=== PATIENT | female | born 1970 | race Caucasian/White ===

== ENCOUNTER → 2017-05-30 13:35 | Outpatient (CLI) | payer OTHER, SELFPAY ==
[2017-06-04 16:55] LABS: HPV Reflexed? NOT INDICATED
== END ==
PROVIDERS: Visit Provider Obstetrics & Gynecology
DX: Z12.4 Encounter for screening for malignant neoplasm of cervix (principal); Z01.419 Encounter for gynecological examination (general) (routine) without abnormal findings
CPT/HCPCS: 88175; G0145

== ENCOUNTER → 2018-10-22 09:25 | Outpatient (CLI) | payer OTHER, SELFPAY ==
--- NOTE | 2018-10-22 09:29 | RAD_ITS ---
STUDY: X-RAY - RIGHT KNEE REASON FOR EXAM: Female, 48 years old. Right knee pain. TECHNIQUE: 4 view(s) of the knee. COMPARISON: None. FINDINGS: Normal visualized distal femur. Normal visualized proximal tibia and fibula. Normal proximal tibiofibular articulation. There is no demonstrated fracture. Normal medial femorotibial compartment. Normal lateral femorotibial compartment. Normal patellofemoral articulation. There is no demonstrated joint effusion. The soft tissue structures are unremarkable. RAD/Knee 4 or More Views IMPRESSION: Normal x-ray examination of the knee. Electronically Signed: Antonio Gould MD at 17:01 EDT , Service support ,
--- NOTE | 2018-10-22 09:29 | RAD_ITS ---
STUDY: X-RAY CHEST REASON FOR EXAM: Female, 48 years old. Atypical chest pain TECHNIQUE: Frontal and lateral views of the chest. COMPARISON: None. FINDINGS: The lungs are clear and expanded. There is no demonstrated pleural abnormality. Normal size heart. Normal mediastinum and cesario. Normal visualized pulmonary arteries. Normal visualized aortic arch and descending thoracic aorta. Normal visualized thoracic spine. Normal visualized ribs, clavicles, and shoulders. There is no demonstrated abnormality of the visualized soft tissue structures of the upper abdomen. RAD/Chest PA and Lateral IMPRESSION: Normal x-ray examination of the chest. Electronically Signed: Antonio Gould MD at 16:59 EDT , Service support ,
[2018-10-22 12:13] LABS: Absolute Lymphocyte Count 2.04 X10^3/uL (0.83-4.51); Basophil# 0.05 X10^3/uL; Basophil% 0.9 % (0-1); Eosinophil# 0.14 X10^3/uL; Eosinophils% 2.5 % (0-5); Hematocrit 41.8 % (37-47); Hemoglobin 13.3 g/dL (12.0-15.0); Lymphocyte # 2.04 X10^3/ul (4.0); Lymphocyte % 36.8 % (19-41); Mean Corp Hgb Conc 31.8 g/dL (32-36); Mean Corpuscular Hgb 28.9 pg (27.0-32.0); Mean Corpuscular Volume 90.7 fL (81-99); Mean Platelet Vol. 9.3 fl (6.2-12.0); Monocyte# 0.33 X10^3/uL; Monocyte% 5.9 % (0-10); NRBC Flagged by Analyzer 0 % (0-5); Neutrophil # 2.98 X10^3/uL (2.7-7.7); Neutrophil % 53.7 % (47-70); Platelet Count 261 K/mm3 (150-450); RBC Distribution Width CV 13.7 % (11.6-14.6); RBC Distribution Width SD 45.8 fl (35.1-43.9); Red Blood Count 4.61 M/mm3 (4.2-5.4); White Blood Count 5.6 K/mm3 (4.4-11.0)
[2018-10-22 12:49] LABS: Hemoglobin A1c 6.1 % (4.2-6.3)
[2018-10-22 12:56] LABS: ALB/GLOB Ratio 0.9 RATIO (0.9-2.4); AST(SGOT) 17 U/L (15-37); Alanine Aminotransfer ALT/SGPT 26 U/L (13-56); Albumin, Serum 3.6 g/dL (3.2-5.0); Alkaline Phosphatase 79 U/L (45-117); Anion Gap 7 (5-15); BUN 12 mg/dL (7-18); BUN/Creat Ratio 14.4 RATIO (10-20); Calcium,Total 8.5 mg/dL (8.5-10.1); Chloride 107 mmol/L (98-107); Cholesterol 223 mg/dL (200); Creatinine, Serum 0.84 mg/dL (0.55-1.02); EST Glomerular Filtration Rate 77 mL/min (>60); Est Glom Filt Rate - Afr Amer 93 mL/min (>60); Globulin 3.8 g/dL (2.2-4.2); Glucose 102 mg/dL (74-106); High Density Lipoprotein 43 mg/dL; Potassium 4.2 mmol/L (3.5-5.1); Protein, Total 7.4 g/dL (6.4-8.2); Sodium Level 139 mmol/L (136-145); Triglycerides 268 mg/dL; Very Low Density Lipoprotein 54 mg/dL (5-40)
== END ==
PROVIDERS: Family Provider Family Medicine; PCP Family Medicine; Referring Provider Family Medicine; Visit Provider Family Medicine
DX: R07.89 Other chest pain (principal); M25.561 Pain in right knee
CPT/HCPCS: 36415; 71046; 73564; 80053; 80061; 83036; 84443; 85025

== ENCOUNTER → 2018-11-06 06:55 | Outpatient (CLI) | payer OTHER, SELFPAY ==
--- NOTE | 2018-11-06 10:59 | STRESSREP ---
Stress Test Report Date: 11-06-18 Procedure: Pharmacologic stress nuclear imaging study Indications: Chest pain Consent: Per the patient Procedure: The patient underwent pharmacologic (Regadenoson) evaluation with a peak heart rate of 88 beats per minute (51 %predicted maximal heart rate) and a peak blood pressure of 146/70 mmHg. The baseline ECG demonstrated sinus bradycardia. The peak pharmacologic ECG demonstrated no obvious ECG changes. There were no cardiac dysrhythmias pretest, during pharmacologic infusion, or recovery. There was no complaint of chest discomfort during pharmacologic infusion or recovery. The examination was discontinued secondary to completion of protocol. Impression: 1. Pharmacologic (Regadenoson) evaluation 2. Peak pharmacologic ECG with no obvious ECG changes. 3. There were no cardiac dysrhythmias pretest, during pharmacologic infusion, or recovery. 4. Nuclear images pending Myocardial perfusion imaging study: Technique: The patient was injected with 15.0 millicuries of technetium 99m Cardiolite and subsequently rest SPECT Cardiolite nuclear imaging was obtained in the horizontal long, vertical long, and short axis views. The patient underwent pharmacologic (Regadenoson) evaluation with a peak heart rate of 88 beats per minute (51 % percent predicted maximal heart rate) and a peak blood pressure of 146/70 mmHg. The patient was injected with 45.0 millicuries of technetium 99m Cardiolite and subsequently stress SPECT Cardiolite nuclear imaging was obtained in the horizontal long, vertical long, and short axis views. A gated Cardiolite study at peak stress was obtained. Interpretation: Rest and stress SPECT Cardiolite nuclear imaging status post realignment, normalization, and attenuation correction demonstrate relative uniform tracer uptake and myocardial perfusion appearing within normal limits. There is end systolic thickening and brightening. The gated Cardiolite study demonstrates myocardial thickening and inward wall motion. The reported LVEF is 76 %. Impression: 1. Rest and stress SPECT Cardiolite nuclear imaging demonstrate relative uniform tracer uptake and myocardial perfusion appearing within normal limits. 2. The gated Cardiolite study reports an LVEF of 76 %. This note was generated with Legal Eggation software. It may contain incorrect words, spelling, and punctuation that were not noted in checking the note before signing.
== END ==
PROVIDERS: Family Provider Family Medicine; PCP Family Medicine; Referring Provider Family Medicine; Visit Provider Family Medicine
DX: R07.89 Other chest pain (principal)
CPT/HCPCS: 78452; 93017; A9500; A4216; J2785

== ENCOUNTER 2018-11-28 10:00 | Outpatient (RCR) | payer OTHER, SELFPAY ==
--- NOTE | 2018-11-05 11:57 | HP.PTEVAL_ITS ---
Patient's Visit Information TEO VILLAFANA is a 48 year old F referred to Physical Therapy by Shai Zhou MD with a diagnosis of Possible medial meniscal test R knee. Date of Evaluation: 11/05/18 Physical Therapist: Shay Fang PT, ATC - Visit Plan Frequency: 2-3x /Week Duration: 3 Weeks Plan: R LE stretching and strengthening, balance and proprio, core stab, nustep, and HEP - Subjective Findings: Pt. injured knee by stepping up into van and felt knee buckle and pop. Pt reported this occured around 09/14, 09/15. Pt reports pain at rest as 0/10. Pt reports pain at worst as 6/10. Pt. reports squatting, sitting for loing periods of time will cause pain. Pt states walking for long periods of time will cause. Pt. states she is on her feet most of the time at work. Pt. reports that rolling over, laying on stomach will cuase pain during sleep and wake her up. Pt. states coming down stairs will cause pain. Pt reports she walks down stairs one step at a time. R knee pops and givers out on her - Pain R knee pain Pain Intensity (Out of 10): 2 Pain Intensity Range: 6 - Objective Neuro: B LE sensation is WNL to light touch. MMT: R hip flex and knee flex= 4/5. All other B LE MMT 5/5 throughout. ROM: R knee 0-2-110, L knee 0-135 degrees. Palpation: Pt is point tender to the medial aspect of her R knee. No obvious deformity. SPecial tests: pos Mcmurrays test - Goals Goal 1:: Decrease R knee pain x 50% to aid with sleep Goal Time Frame: 2-4 Weeks Goal 2:: Increase R LE strength x 1 grade to aid with stair negotiation Goal Time Frame: 2-4 Weeks Goal 3:: Increase R knee ROM x 20 degrees to aid with squatting activity Goal Time Frame: 2-4 Weeks Goal 4:: I with HEP Goal Time Frame: 2-4 Weeks - Rehabilitation Potential Physical Therapy Diagnosis: R knee pain, weakness, and limited ROM secondary to possible R knee medial meniscal tear Rehabilitation Potential: Good - Anticipated Interventions Patient/Client Instruction: Educate patient on: Condition, Plan of Care For the Purpose of:: To improve self management Therapeutic Exercise to Include: Strength training, Endurance training, Balance training, Body mechanics, Postural training, Flexibilty training, Dynamic Lumbar Stabilization For the Purpose of:: To decrease pain, To increase ROM, To improve muscle performance and motor function Cryotherapy (ice pack, ice massage): Yes For the Purpose of:: To decrease pain Thank you for the opportunity to evaluate your patient. For Medicare and Medicare HMO plans, please review the plan of care and approve it. It will need to be FAXED BACK to us at [phone] for Medicare purposes. For Medicare only, by signing this I certify the plan of care. Please let me know if there are questions or concerns regarding this plan of care. Physician Signature: Date:
--- NOTE | 2018-11-28 10:32 | HP.PTDCSUM ---
HP - PT D/C Summary It has been my pleasure to treat TEO VILLAFANA under orders from Shai Zhou MD, for the diagnosis of Possible medial meniscal tear R knee for a total of 6 visit(s). Discharge Date: Please see the following information for a summary of their discharge status. - Subjective Subjective: I feel a lot better. I am ready for discharge - Pain R knee pain Pain Intensity (Out of 10): 1 - Overall Improvement % Improvement: 90 - Objective Objective/Function: R knee pain ranges from 0-1/10. R knee MMT 5/5 throughout. R knee ROM 0-110 degrees. Pt is I with HEP. Rx goals achieved - Goals Goal 1:: Decrease R knee pain x 50% to aid with sleep Goal Progress: Goal Met Goal 2:: Increase R LE strength x 1 grade to aid with stair negotiation Goal Progress: Goal Met Goal 3:: Increase R knee ROM x 20 degrees to aid with squatting activity Goal Progress: Progressing Goal 4:: I with HEP Goal Progress: Goal Met - Plan Plan: Discharge - D/C Information If there are questions or concerns regarding this patient's physical therapy, please feel free to call me at [phone]. Thank you for the referral of this patient. Sincerely, Shay Fang, PT, ATC
== END 2018-11-28 10:37 | disposition home or self-care (01) ==
LOC: PT 10:00
PROVIDERS: Family Provider Family Medicine; PCP Family Medicine; Referring Provider Family Medicine; Visit Provider Family Medicine
DX: M25.561 Pain in right knee (principal)
CPT/HCPCS: 97110; 97161; 97530

== ENCOUNTER → 2020-04-29 15:36 | Outpatient (CLI) | payer OTHER, SELFPAY ==
--- NOTE | 2020-04-29 16:21 | CT_ITS ---
INDICATION: ABD PAIN EXAMINATION: CT Abdomen And Pelvis W/ Contrast Injection TECHNIQUE: Helically acquired images were obtained of the abdomen and pelvis after IV contrast. A radiation dose optimization technique was used for this scan. IV Contrast dosage and agent: 100 cc ISOVUE-370 Oral contrast: GASTROGRAFIN. COMPARISON: None. FINDINGS: Visualized lung bases: Unremarkable Liver: Unremarkable Gallbladder: Unremarkable Spleen: Unremarkable Pancreas: Unremarkable Adrenal Glands: Unremarkable Kidneys: Unremarkable GI Tract: Scattered diverticula throughout the colon without evidence of inflammation. The appendix is normal. Vasculature: Mild scattered aortoiliac atherosclerotic calcifications. Lymphadenopathy: None Peritoneum: No ascites. Bladder: Unremarkable Reproductive organs: Unremarkable Bones/Soft tissues: Mild scattered degenerative changes of the visualized spine. CT/Abdomen/Pelvis WITH Contrast IMPRESSION: No acute abnormalities in the abdomen or pelvis. Diverticulosis without evidence of acute diverticulitis. Electronically Signed: Davonte Mccarty MD at 19:07 EDT Tel , Service support ,
[2020-04-29 17:29] LABS: Hematocrit 39.5 % (37-47); Hemoglobin 12.9 g/dL (12.0-15.0); Mean Corp Hgb Conc 32.7 g/dL (32-36); Mean Corpuscular Hgb 29.2 pg (27.0-32.0); Mean Corpuscular Volume 89.4 fL (81-99); Mean Platelet Vol. 9.2 fl (6.2-12.0); Platelet Count 265 K/mm3 (150-450); RBC Distribution Width CV 13.7 % (11.6-14.6); RBC Distribution Width SD 44.4 fl (35.1-43.9); Red Blood Count 4.42 M/mm3 (4.2-5.4); White Blood Count 6.8 K/mm3 (4.4-11.0)
[2020-04-29 18:16] LABS: AST(SGOT) 17 U/L (15-37); Alanine Aminotransfer ALT/SGPT 26 U/L (13-56); Albumin, Serum 3.8 g/dL (3.2-5.0); Alkaline Phosphatase 74 U/L (45-117); Amylase 28 U/L (25-115); Anion Gap 7 (5-15); BUN 19 mg/dL (7-18); Calcium,Total 9.1 mg/dL (8.5-10.1); Chloride 105 mmol/L (98-107); Creatinine, Serum 0.76 mg/dL (0.55-1.02); EST Glomerular Filtration Rate 85 mL/min (>60); Est Glom Filt Rate - Afr Amer 103 mL/min (>60); Globulin 3.8 g/dL (2.2-4.2); Glucose 87 mg/dL (74-106); Lipase 259 U/L (73-393); Potassium 3.8 mmol/L (3.5-5.1); Protein, Total 7.6 g/dL (6.4-8.2); Sodium Level 138 mmol/L (136-145)
[2020-04-30 13:59] LABS: CRP < 2.90 mg/L (0.0-3.0)
== END ==
PROVIDERS: PCP Family Medicine; Visit Provider Registered Nurse
DX: R10.9 Unspecified abdominal pain (principal)
CPT/HCPCS: 36415; 74177; 80053; 82150; 83690; 85027; 86140; Q9967

== ENCOUNTER → 2020-05-05 10:01 | Outpatient (CLI) | payer OTHER, SELFPAY ==
[2020-05-05 12:27] LABS: CRP < 2.90 mg/L (0.0-3.0)
== END ==
PROVIDERS: PCP Family Medicine; Referring Provider Family Medicine; Visit Provider Family Medicine
DX: M46.1 Sacroiliitis, not elsewhere classified (principal)
CPT/HCPCS: 36415; 86140

== ENCOUNTER → 2020-06-01 16:39 | Outpatient (CLI) | payer OTHER, SELFPAY ==
--- NOTE | 2020-06-01 | EMB_PTH ---
PATIENT: TEO VILLAFANA LOC: [facility] U#:[id number] AGE/SX: 54/F ROOM: RE06/01/[address]: Dr. Angelica Jones DO : 1970 BED: DIS: SPEC #: [id number] RECD: 06/01/20 17:29 STATUS: VERITO ZAN #: [id number] SUE: 06/01/20 00:[address]: Angelica Jones DEPT: SURGICAL PATHOLOGY RECD BY: Miah Saxena ENTERED: 06/02/20 09:36 SP TYPE: ENDOM BX/C BERNABE DR: Dr. Shai Zhou MD Tissues: Endometrium, NOS Procedures: Surgery Specimen Level IV HEADER OPERATION: Endometrial biopsy PRE-OP DIAGNOSIS: RLQ pain, perimenopausal, thickened EM 13.6 mm TISSUE SUBMITTED: Endometrial biopsy MICROSCOPIC DIAGNOSIS Endometrium, biopsy: Proliferative endometrium with focal glandular breakdown. AM:[email or web address] 06/03/2020 MICROSCOPIC DESCRIPTION Slides are reviewed. GROSS DESCRIPTION Received in fixative is one container labeled with the patient's name and designated EMB. The specimen consists of multiple fragments of hemorrhagic mucoid tissue that in aggregate measure 3 x 2.5 x 0.3 cm. The specimen is totally submitted in one cassette. / GAL:edelmira 06/02/20 TC:5 CPT: 71633
== END ==
PROVIDERS: PCP Family Medicine; Visit Provider Student in an Organized Health Care Education/Training Program
DX: Z78.0 Asymptomatic menopausal state (principal); R10.31 Right lower quadrant pain
CPT/HCPCS: 88305

== ENCOUNTER 2020-06-03 14:07 | Emergency (ER) | payer OTHER, SELFPAY ==
[2020-06-03 14:08] VITALS: BP 159/84; PULSE 62; RESP 18; TEMP 36.1; O2SAT 98; BMI 35.7
--- NOTE | 2020-06-03 16:08 | CT_ITS ---
STUDY: CT BRAIN WITHOUT CONTRAST REASON FOR EXAM: Female, 49 years old. Pain headache RADIATION DOSAGE (If Supplied By Facility): CTDIvol = ( 44.99 ) mGy, DLP = ( 745.49 ) mGycm TECHNIQUE: Transaxial CT imaging of the brain was performed without administration of intravenous contrast material. Individualized dose optimization techniques were used for this CT. COMPARISON: No relevant priors. FINDINGS: Normal soft tissue structures. Normal calvarium. Normal size ventricles and extra-axial spaces for the patient''s age. Normal white matter tracts of the cerebral hemispheres. Normal basal ganglia and thalami. Normal brainstem. Normal cerebellum. There is no intracranial hemorrhage. There are no findings of an acute ischemic infarction. Normal visualized paranasal sinuses. CT/Brain/Head without Contrast IMPRESSION: Normal unenhanced CT scan of the brain. Electronically Signed: Dillon Blanco MD at 16:54 EDT Tel , Service support ,
--- NOTE | 2020-06-03 16:08 | ED.DCSUM_ITS ---
ED.HAYDEE History of Present Illness Chief Complaint: Headache Narrative Narrative: Patient presents with a gradual onset of headache that started earlier today, she felt like she had bilateral floaters which resolved. She was noticed to have high blood pressure with this headache. She tells me over the past few to months every time she has had a doctor visit it was noticed that her blood pressure was in the 160s or higher. She is not on any antihypertensives. She has no current vision changes she has no neck pain or stiffness she has no fever or chills. She has no weakness confusion or paresthesias. Past medical history: Reviewed, unremarkable to this point Medications: Reviewed Social history: Noncontributory Review of systems: All systems negative except as indicated General: No fever Eyes: No visual changes ENT: No upper airway congestion, normal voice Neck: No neck pain Cardiovascular: No chest pain Respiratory: No shortness of breath or cough Gastrointestinal: No abdominal pain, nausea vomiting or diarrhea Genitourinary: No dysuria Musculoskeletal: Denies myalgias no difficulty with ambulation Skin: No rash Neurological: No memory loss, confusion or any focal weakness Psych: No recent behavioral changes Hematologic: No easy bleeding or easy bruising PFSH PFS Home Medications hydrochlorothiazide 12.5 mg PO DAILY #30 tab 06/03/20 [Rx Last Taken Unknown] Allergy/AdvReac Type Severity Reaction Status Date / Time latex Allergy Unknown Verified 06/03/20 14:10 Social History Smoking Status: Never smoker EXAM Physical Exam Narrative Exam Narrative: Physical exam General: Well nourished, she is sitting in a chair and appears relatively comfortable. Head: Normocephalic, Atraumatic Eyes: Conjunctiva not pale. Pupils are reactive. Vision is normal. ENT: Moist mucous membranes Neck: Supple, Nontender, No lymphadenopathy Cardiovascular: Regular rate, Regular rhythm Respiratory: No distress, CTA bilaterally Abdomen: Soft, Nontender, Nondistended Back: Nontender, Normal Inspection. Negative for: CVA tenderness Extremities: Nontender, No edema Skin: Normal color, No rash Neurological: Alert, Normal Strength, Normal Sensation. Normal gait. Psychological: Normal affect Const Vital Signs: 06/03/20 14:08 06/03/20 17:17 Temperature 96.9 F L Temperature Source Temporal Pulse Rate 62 65 Respiratory Rate 18 16 Blood Pressure 159/84 H 156/86 H Blood Pressure Mean 109 109 Pulse Ox 98 99 Oxygen Delivery Method Room Air Room Air [facility] Lab Data Lab results narrative: Patient's headache significantly improved after analgesia IM. CT is unremarkable she has a gradual onset of cephalgia with no neurological symptoms I do not believe further testing is needed. She does have hypertension although her new blood pressure is now 156/86 therefore I will start some antihypertensive she can follow-up with her PCP at home. Radiography Diagnostic Testing: Radiology Impression Brain CT 06/03/20 16:08 IMPRESSION: Normal unenhanced CT scan of the brain. Electronically Signed: Dillon Blanco MD at 16:54 EDT Tel , Service support , Discharge Plan Triage Chief Complaint: Headache ED Provider: Manuel Forrest Dx/Rx/DC Orders Clinical Impression: Headache, Hypertension Instructions: ED Headache Unspecified, ED High Blood Pressure ..., ED Sinus Headache Prescriptions: New hydrochlorothiazide 12.5 mg tablet 12.5 mg PO DAILY Qty: 30 RF: 0 Primary Care Provider: Shai Zhou Referrals: Shai Zhou MD [Primary Care Provider] - 2 Days Disposition Disposition: Home, self care
[2020-06-03] MEDS: Ketorolac 30 MG/ML Syringe IM (16:31)
[2020-06-03] MEDS: DiphenhydrAMINE 50 MG/ML Syringe 25 MG IM (16:32)
[2020-06-03] MEDS: Metoclopramide 10 MG/2 ML Vial IM (16:32)
--- NOTE | 2020-06-03 16:59 | EKG12_ITS ---
Test Reason : MIGRAINE Blood Pressure : / mmHG Vent. Rate : 057 BPM Atrial Rate : 057 BPM P-R Int : 150 ms QRS Dur : 086 ms QT Int : 438 ms P-R-T Axes : 043 009 014 degrees QTc Int : 426 ms Sinus bradycardia Otherwise normal ECG Confirmed by LASHAWN MENJIVAR, NATALIA ([id number]), copy editor ALVERTO BUTT ([id number]) on 06/07/2020 12:25:20 PM Referred By: JOSE Confirmed By:NATALIA HARDIN MD
[2020-06-03 17:17] VITALS: BP 156/86; PULSE 65; RESP 16; O2SAT 99
== END 2020-06-03 18:12 | disposition home or self-care (01) ==
PROVIDERS: Emergency Provider Emergency Medicine; PCP Family Medicine
DX: R51.9 Headache, unspecified (principal); I10 Essential (primary) hypertension; Z79.899 Other long term (current) drug therapy
CPT/HCPCS: 70450; 93005; 99282

== ENCOUNTER → 2020-09-28 18:08 | Outpatient (CLI) | payer OTHER, SELFPAY ==
[2020-09-28 19:27] LABS: Probe Check PASS
== END ==
LOC: LAB 20:12 → LABSPEC 20:12
PROVIDERS: PCP Family Medicine; Referring Provider Family Medicine; Visit Provider Family Medicine
DX: U07.1 COVID-19 (principal)
CPT/HCPCS: 87635; U0005; U0003

== ENCOUNTER 2020-09-30 16:58 | Outpatient (CLI) | payer OTHER, SELFPAY ==
[2020-09-30 16:57] VITALS: BP 152/88; PULSE 88; RESP 16; TEMP 37.2; O2SAT 99; BMI 33.4
--- NOTE | 2020-09-30 17:06 | NURSING ---
Lung sounds clear throughout but diminished at bases, coarse cough noted, states yellow sputum at times not observed
[2020-09-30] MEDS: 0.9% Saline Lock 10 ML Syringe IV (17:17)
[2020-09-30 18:06] VITALS: BP 146/81; PULSE 72; RESP 18; TEMP 36.7; O2SAT 100
[2020-09-30 19:06] VITALS: BP 154/86; PULSE 77; RESP 16; TEMP 36.8; O2SAT 99
== END 2020-09-30 19:12 | disposition home or self-care (01) ==
LOC: ICUOUT 16:58 → MS2 16:59
PROVIDERS: PCP Family Medicine; Referring Provider Nurse Practitioner Acute Care; Visit Provider Nurse Practitioner Acute Care
DX: Z23 Encounter for immunization (principal); U07.1 COVID-19
CPT/HCPCS: J7050; M0243; A4216; Q0244

== ENCOUNTER 2021-03-29 09:02 | Outpatient (CLI) | payer OTHER, SELFPAY ==
[2021-04-01 14:04] LABS: HPV APTIMA, High Risk Negative (Negative)
== END 2021-03-29 23:59 | disposition home or self-care (01) ==
PROVIDERS: PCP Family Medicine; Visit Provider Student in an Organized Health Care Education/Training Program
DX: Z12.4 Encounter for screening for malignant neoplasm of cervix (principal)
CPT/HCPCS: 87624; 88175; G0145

== ENCOUNTER 2021-04-05 08:31 | Outpatient (CLI) | payer OTHER, SELFPAY ==
--- NOTE | 2021-04-05 08:34 | BI_ITS ---
MAMMOGRAPHY - BILATERAL SCREENING REASON FOR EXAM: Female, 50 years old. Routine annual screening examination. PERTINENT HISTORY: Grandmother with breast cancer. TECHNIQUE: Digital bilateral breast bonifacio (3D mammographic acquisition) in the CC and MLO projections. 2-D mediolateral oblique (MLO) and craniocaudad (CC) views of both breasts were obtained. CAD: Full Field Digital Mammography with Computer Added Detection was performed. COMPARISON: Comparison is made with prior study dated 10/20/2016. FINDINGS: Breast Composition: The breasts are heterogeneously dense, which may obscure small masses. There are no dominant masses or suspicious calcifications. No other significant abnormalities are identified. There has been no significant change since the prior study. BI/SCRN MAMM (CAD)W/BONIFACIO BILAT IMPRESSION: Stable bilateral screening mammogram. Yearly follow-up mammogram recommended. (A) ASSESSMENT CATEGORY: BIRADS Category 1: Negative. A letter regarding these results will be sent to the patient by the facility within 30 days. Approximately 10% of breast cancers are not detected by mammography. A normal mammogram should not delay biopsy of a clinically suspicious abnormality. [id number] Electronically Signed: Prabhu Kern MD at 9:36 EST ,
== END 2021-04-05 23:59 | disposition home or self-care (01) ==
LOC: OPBI 08:32
PROVIDERS: PCP Family Medicine; Referring Provider Student in an Organized Health Care Education/Training Program; Visit Provider Student in an Organized Health Care Education/Training Program
DX: Z12.31 Encounter for screening mammogram for malignant neoplasm of breast (principal); Z80.3 Family history of malignant neoplasm of breast
CPT/HCPCS: 77063; 77067

== ENCOUNTER → 2021-05-27 | Outpatient (CLI) | payer OTHER, SELFPAY ==
[2021-05-27 17:35] LABS: Absolute Lymphocyte Count 2.64 X10^3/uL (0.83-4.51); Absolute Neutrophil Count 4.7 X10^3/uL (2.0-7.7); Basophil# 0.06 X10^3/uL; Basophil% 0.6 % (0-1); Eosinophil# 1.54 X10^3/uL; Eosinophils% 16.3 % (0-5); Hemoglobin 12.7 g/dL (12.0-15.0); Lymphocyte # 2.64 X10^3/ul (0.83-4.51); Mean Corp Hgb Conc 32.6 g/dL (32-36); Mean Corpuscular Hgb 29.2 pg (27.0-32.0); Mean Corpuscular Volume 89.7 fL (81-99); Mean Platelet Vol. 9.1 fl (6.2-12.0); Monocyte# 0.43 X10^3/uL; Monocyte% 4.6 % (0-10); NRBC Flagged by Analyzer 0 % (0-5); Neutrophil # 4.72 X10^3/uL (2.7-7.7); Neutrophil % 50.2 % (47-70); Platelet Count 260 K/mm3 (150-450); RBC Distribution Width CV 14.2 % (11.6-14.6); RBC Distribution Width SD 45.8 fl (35.1-43.9); Red Blood Count 4.35 M/mm3 (4.2-5.4); White Blood Count 9.4 K/mm3 (4.4-11.0)
[2021-05-27 18:43] LABS: AST(SGOT) 21 U/L (15-37); Alanine Aminotransfer ALT/SGPT 27 U/L (13-56); Albumin, Serum 3.6 g/dL (3.2-5.0); Alkaline Phosphatase 92 U/L (45-117); Anion Gap 4 (5-15); BUN 12 mg/dL (7-18); CRP < 2.90 mg/L (0.0-3.0); Calcium,Total 9.1 mg/dL (8.5-10.1); Chloride 109 mmol/L (98-107); Creatinine, Serum 0.92 mg/dL (0.55-1.02); EST Glomerular Filtration Rate 68 mL/min (>60); Est Glom Filt Rate - Afr Amer 82 mL/min (>60); Globulin 3.7 g/dL (2.2-4.2); Glucose 102 mg/dL (74-106); Lipase 228 U/L (73-393); Potassium 3.6 mmol/L (3.5-5.1); Protein, Total 7.3 g/dL (6.4-8.2); Sodium Level 139 mmol/L (136-145)
== END | disposition home or self-care (01) ==
PROVIDERS: PCP Family Medicine; Referring Provider Family Medicine; Visit Provider Family Medicine
DX: A09 Infectious gastroenteritis and colitis, unspecified (principal)
CPT/HCPCS: 36415; 80053; 83690; 85025; 86140

== ENCOUNTER → 2021-05-28 | Outpatient (CLI) | payer OTHER, SELFPAY | END | disposition home or self-care (01) | PROVIDERS: PCP Family Medicine; Visit Provider Family Medicine | DX: A09 Infectious gastroenteritis and colitis, unspecified (principal) | CPT/HCPCS: 83986; 87177; 87209; 87493 ==

== ENCOUNTER → 2021-06-09 | Outpatient (CLI) | payer OTHER, SELFPAY | END | disposition home or self-care (01) | LOC: LAB.FUTURE 09:06 → LABSPEC 09:07 | PROVIDERS: PCP Family Medicine; Referring Provider Family Medicine; Visit Provider Family Medicine | DX: R19.7 Diarrhea, unspecified (principal) ==

== ENCOUNTER → 2021-06-21 | Outpatient (CLI) | payer OTHER, SELFPAY ==
[2021-06-21 12:48] LABS: Amylase 22 U/L (25-115); Cholesterol 239 mg/dL (200); High Density Lipoprotein 43 mg/dL; Triglycerides 180 mg/dL; Very Low Density Lipoprotein 36 mg/dL (5-40)
[2021-06-22 18:20] LABS: Anti-Smooth Muscle ABS 6 Units (0-19)
[2021-06-22 18:21] LABS: ANTINUCLEAR ANTIBODIES DIRECT Negative (Negative)
== END | disposition home or self-care (01) ==
LOC: MFPLAB 11:15
PROVIDERS: PCP Family Medicine; Visit Provider Family Medicine
DX: K86.81 Exocrine pancreatic insufficiency (principal); Z13.220 Encounter for screening for lipoid disorders
CPT/HCPCS: 36415; 80061; 82150; 83516; 86038

== ENCOUNTER → 2021-07-12 | Outpatient (CLI) | payer OTHER, SELFPAY ==
--- NOTE | 2021-07-12 07:27 | MRI_ITS ---
STUDY: MR MRCP WITHOUT CONTRAST REASON FOR EXAM: Female, 50 years old. EXOCRINE PANCREATIC INSUFFICIENCY, abd pain TECHNIQUE: Standard MRCP technique was utilized. 3-D reconstructions were performed. COMPARISON: CT 04/29/2020 FINDINGS: Gall Bladder: Multiple filling defects within the gallbladder consistent cholelithiasis. Cystic duct: Normal with no demonstrated fixed filling defect. Intrahepatic ducts: Normal visualized intrahepatic ducts with no demonstrated fixed filling defect, dilation or stricture. Common hepatic duct: Normal with no demonstrated fixed filling defect, dilation or stricture. Common bile duct: Normal with no demonstrated fixed filling defect, dilation or stricture. Pancreatic duct: Normal with no demonstrated fixed filling defect, dilation or stricture. MRI/MRCP Abdomen without Contrast IMPRESSION: Cholelithiasis. Electronically Signed: Dillon Blanco MD at 10:02 EDT ,
== END | disposition home or self-care (01) ==
PROVIDERS: PCP Family Medicine; Referring Provider Family Medicine; Visit Provider Family Medicine
DX: K86.81 Exocrine pancreatic insufficiency (principal)
CPT/HCPCS: 74181

== ENCOUNTER → 2021-07-18 | Outpatient (CLI) | payer OTHER, SELFPAY ==
--- NOTE | 2021-07-18 09:55 | NM_ITS ---
EXAM: NM HEPATOBILIARY SCAN CLINICAL INDICATION: ABD PAIN TECHNIQUE: Technetium 99m choletec was intravenously administered and static images were obtained. This report was created using [employer] report generation technology. COMPARISON: None. FINDINGS: LIVER: Liver appears prominent in size. There is no abnormal hyperemia along the gallbladder fossa. BILE DUCTS: Unremarkable. Normal radiopharmaceutical activity. GALLBLADDER: Gallbladder ejection fraction is 50% at 30 minutes which is normal. STOMACH AND BOWEL: Unremarkable. Normal radiopharmaceutical activity. FINDINGS: LIVER: Liver appears prominent in size. There is no abnormal hyperemia along the gallbladder fossa. NM/Hepatobilliary Img w/Pharm Int IMPRESSION: 1. Hepatomegaly. 2. Patent cystic and common bile ducts. 3. Normal gallbladder ejection fraction. Electronically Signed: Tod Fox MD at 12:04 EDT Reading Location ID and State: [facility] / [place] Tel , Service support ,
== END | disposition home or self-care (01) ==
LOC: NM 09:48
PROVIDERS: PCP Family Medicine; Visit Provider Family Medicine
DX: R10.9 Unspecified abdominal pain (principal)
CPT/HCPCS: 78227; A9537

== ENCOUNTER → 2021-08-10 | Outpatient (CLI) | payer OTHER, SELFPAY ==
[2021-08-10 10:07] LABS: Erythrocyte Sedimentation Rate 9 mm/hr (0-30)
[2021-08-10 10:08] LABS: Absolute Lymphocyte Count 2.43 X10^3/uL (0.83-4.51); Absolute Neutrophil Count 1.9 X10^3/uL (2.0-7.7); Basophil# 0.04 X10^3/uL; Basophil% 0.8 % (0-1); Eosinophil# 0.14 X10^3/uL; Eosinophils% 2.9 % (0-5); Hematocrit 40.7 % (37-47); Hemoglobin 13.4 g/dL (12.0-15.0); Lymphocyte # 2.43 X10^3/ul (0.83-4.51); Lymphocyte % 50.7 % (19-41); Mean Corp Hgb Conc 32.9 g/dL (32-36); Mean Corpuscular Hgb 29.1 pg (27.0-32.0); Mean Corpuscular Volume 88.5 fL (81-99); Mean Platelet Vol. 9.5 fl (6.2-12.0); Monocyte# 0.29 X10^3/uL; Monocyte% 6.1 % (0-10); NRBC Flagged by Analyzer 0 % (0-5); Neutrophil # 1.89 X10^3/uL (2.7-7.7); Neutrophil % 39.5 % (47-70); Platelet Count 233 K/mm3 (150-450); RBC Distribution Width CV 12.5 % (11.6-14.6); RBC Distribution Width SD 40.9 fl (35.1-43.9); White Blood Count 4.8 K/mm3 (4.4-11.0)
[2021-08-10 10:16] LABS: Prothrombin Time (Protime)PT. 12.6 SECONDS (11.7-14.9)
[2021-08-10 11:05] LABS: AST(SGOT) 17 U/L (15-37); Alanine Aminotransfer ALT/SGPT 24 U/L (13-56); Albumin, Serum 3.5 g/dL (3.2-5.0); Alkaline Phosphatase 63 U/L (45-117); Anion Gap 6 (5-15); BUN 12 mg/dL (7-18); BUN/Creat Ratio 15.3 RATIO (10-20); Calcium,Total 8.6 mg/dL (8.5-10.1); Chloride 107 mmol/L (98-107); Creatinine, Serum 0.78 mg/dL (0.55-1.02); EST Glomerular Filtration Rate 82 mL/min (>60); Est Glom Filt Rate - Afr Amer 99 mL/min (>60); Globulin 3.4 g/dL (2.2-4.2); Glucose 107 mg/dL (74-106); Potassium 3.8 mmol/L (3.5-5.1); Protein, Total 6.9 g/dL (6.4-8.2); Sodium Level 139 mmol/L (136-145); Thyroid Stim Hormone (TSH) 1.77 uIU/mL (0.358-3.74)
[2021-08-11 15:08] LABS: Anti-Centromere B Ab <0.2 AI (0.0-0.9); Anti-Chromatin <0.2 AI (0.0-0.9); Anti-Jo <0.2 AI (0.0-0.9); Anti-Scleroderma-70 AB <0.2 AI (0.0-0.9); RNP Ab 0.4 AI (0.0-0.9); SJOGREN'S Anti-SS-A test < 0.2 AI (0.0-0.9); SJOGREN'S Anti-SS-B test < 0.2 AI (0.0-0.9); Smith Ab <0.2 AI (0.0-0.9)
[2021-08-11 15:28] LABS: Anti-Mitochondrial AB <20.0 Units (0.0-20.0); Anti-dsDNA Ab <1 IU/mL (0-9)
[2021-08-11 17:07] LABS: Endomysial Antibody IgA Negative (Negative)
[2021-08-11 18:28] LABS: Immunoglobulin A 158 mg/dL (87-352); t-Transglutaminase IgA <2 U/mL (0-3)
[2021-08-13 20:08] LABS: Albumin 3.7 g/dL (2.9-4.4); Alpha-1-Globulins 0.2 g/dL (0.0-0.4); Alpha-2-Globulins 0.7 g/dL (0.4-1.0); Cytoplasmic Ab (C-ANCA) <1:20 titer (Neg:<1:20); Gamma Globulin 0.9 g/dL (0.4-1.8); HEPATITIS B SURFACE AG Negative (Negative); Hep C Antibodies <0.1 s/co ratio (0.0-0.9); Hepatitis A IgM Antibody Negative (Negative); Hepatitis B Core AB IgM Negative (Negative); Immunoglobulin A 151 mg/dL (87-352); Immunoglobulin E 100 IU/mL (6-495); Immunoglobulin G 938 mg/dL (586-1602); Immunoglobulin M 55 mg/dL (26-217); PROEL- TOTAL PROTEIN 6.6 g/dL (6.0-8.5)
[2021-08-14 13:03] LABS: Perinuclear Ab (P-ANCA) <1:20 titer (Neg:<1:20)
== END | disposition home or self-care (01) ==
PROVIDERS: PCP Family Medicine; Referring Provider Nurse Practitioner Adult Health; Visit Provider Nurse Practitioner Adult Health
DX: K52.9 Noninfective gastroenteritis and colitis, unspecified (principal); R16.0 Hepatomegaly, not elsewhere classified
CPT/HCPCS: 36415; 80053; 80074; 82784; 82785; 83036; 83516; 84165; 84443; 85025; 85610; 85652; 86225; 86235; 86255; 86256; 86334

== ENCOUNTER → 2021-08-18 | Outpatient (CLI) | payer OTHER, SELFPAY ==
[2021-08-23 14:20] LABS: Calprotectin, Stool <16 ug/g (0-120)
== END | disposition home or self-care (01) ==
LOC: MTLAB 09:02
PROVIDERS: PCP Family Medicine; Referring Provider Nurse Practitioner Adult Health; Visit Provider Nurse Practitioner Adult Health
DX: K58.9 Irritable bowel syndrome, unspecified (principal); K52.9 Noninfective gastroenteritis and colitis, unspecified
CPT/HCPCS: 83630; 83993; 87506

== ENCOUNTER → 2021-09-23 | Outpatient (CLI) | payer OTHER, SELFPAY ==
--- NOTE | 2021-09-23 09:32 | US_ITS ---
STUDY: ABDOMINAL ULTRASOUND - ELASTOGRAPHY REASON FOR VISIT: Female, 51 years old. Hepatomegaly. Fatty infiltration of the liver. TECHNIQUE: Liver stiffness measurements were obtained on a [employer] Scam RS 85 ultrasound machine using a CA 1-7 probe following the SRU guidelines. 3 measurements were obtained using a 2-D-SWE method. The IQR/M was 27 % suggesting a quality data set. TECHNICAL QUALITY: Adequate. COMPARISON: None. FINDINGS: Liver: Fatty infiltration of the liver. Median liver stiffness measured 8.4 kPa. US/Elastography Parenchyma/Organ IMPRESSION: Liver stiffness measures 8.4 kPa compatible with F2-F3 (Mild to moderate liver fibrosis) Metavir score. Electronically Signed: Prabhu Kern MD at 11:12 EDT ,
--- NOTE | 2021-09-23 09:32 | US_ITS ---
STUDY: ABDOMINAL ULTRASOUND - RIGHT UPPER QUADRANT REASON FOR VISIT: Female, 51 years old for elastography TECHNIQUE: Ultrasound evaluation of the right upper quadrant was performed with real-time and static kimball-scale imaging. TECHNICAL QUALITY: Adequate. COMPARISON: None. FINDINGS: Liver: The liver is enlarged and measures 18.9 cm. There is increased echogenicity consistent with fatty infiltration. The bile ducts are within normal limits. There is hepatic color flow. The direction of portal flow is hepatopetal. There is no demonstrated mass lesion. Gallbladder: Normal distended gallbladder. The gallbladder wall measures 1.6 mm. There is a negative sonographic Darden''s sign. There is no pericholecystic fluid. There are multiple echogenic structures within the gallbladder, consistent with multiple gallstones. Common Bile Duct (C.B.D.): The common bile duct measures 2.0 mm. Pancreas: Normal size of the head, body and tail of the pancreas. There is normal echogenicity of the pancreas. There is no demonstrated pancreatic mass or cyst. Right Kidney: Normal size of the right kidney. The right kidney measures 10.9 cm x 5.8 cm x 5.3 cm. Normal renal cortex. The right cortex measures 1.5 cm. There is no demonstrated renal mass or cyst. There is no right hydronephrosis. US/Abdomen Limited IMPRESSION: Hepatomegaly. Fatty infiltration of the liver. Gallstones. Electronically Signed: Prabhu Kern MD at 12:57 EDT ,
== END | disposition home or self-care (01) ==
PROVIDERS: PCP Family Medicine; Visit Provider Nurse Practitioner Adult Health
DX: R16.0 Hepatomegaly, not elsewhere classified (principal)
CPT/HCPCS: 76705; 76981

== ENCOUNTER → 2021-09-27 | Outpatient (CLI) | payer OTHER, SELFPAY ==
[2021-09-30 18:07] LABS: Gastrin, Serum 19 pg/mL (0-115)
== END | disposition home or self-care (01) ==
LOC: LAB 09:32
PROVIDERS: PCP Family Medicine; Referring Provider Nurse Practitioner Adult Health; Visit Provider Nurse Practitioner Adult Health
DX: K52.9 Noninfective gastroenteritis and colitis, unspecified (principal); R10.11 Right upper quadrant pain
CPT/HCPCS: 36415; 82941

== ENCOUNTER → 2021-09-30 | Outpatient (CLI) | payer OTHER, SELFPAY ==
--- NOTE | 2021-09-30 16:58 | CT_ITS ---
STUDY: CT ABDOMEN AND PELVIS WITH CONTRAST REASON FOR EXAM: Female, 51 years old. RUQ pain, epigastris and RLQ pain, diarrhea -- oral and iv RADIATION DOSAGE (If Supplied By Facility): CTDIvol = ( 22.79 ) mGy, DLP = ( 1227.41 ) mGycm TECHNIQUE: Transaxial images were obtained from the dome of the diaphragm to the symphysis pubis with oral contrast. Oral and amp; IV Readi-CAT and amp; 100mL Isovue-370 was administered. Sagittal and coronal images were reconstructed. Individualized dose optimization techniques were used for this CT. COMPARISON: 04/29/2020 FINDINGS: The visualized lung bases are unremarkable. The visualized portions of the heart are within normal limits. Normal liver. Normal gallbladder and extrahepatic biliary system. Normal spleen. Normal pancreas. Normal bilateral adrenal glands. Normal right kidney. Normal left kidney. Normal visualized stomach. Normal small intestine. There are multiple colonic diverticula consistent with diverticulosis. The appendix is visualized and appears normal. Normal abdominal aorta. Normal inferior vena cava. Normal retroperitoneum. Normal urinary bladder. Normal abdominal wall. Normal osseous structures. CT/Abdomen/Pelvis WITH Contrast IMPRESSION: Sigmoid diverticulosis without diverticulitis. Electronically Signed: Dillon Blanco MD at 0:21 EDT ,
== END | disposition home or self-care (01) ==
PROVIDERS: PCP Family Medicine; Visit Provider Nurse Practitioner Adult Health
DX: R10.11 Right upper quadrant pain (principal); R10.813 Right lower quadrant abdominal tenderness; K52.9 Noninfective gastroenteritis and colitis, unspecified
CPT/HCPCS: 74177; Q9967

== ENCOUNTER 2021-11-15 11:33 | Day surgery (SDC) | payer OTHER, SELFPAY ==
[2021-11-15] MEDS: Lactated Ringers 1,000 ML 15 ML IV (11:45)
[2021-11-15 11:52] VITALS: BP 155/93; PULSE 78; RESP 16; TEMP 36.2; O2SAT 100; BMI 31.1
--- NOTE | 2021-11-15 12:30 | IMM_PTH ---
PATIENT: TEO VILLAFANA LOC: [facility] U#:[id number] AGE/SX: 51/F ROOM: RE11/15/[address]: Dr. Jeremi Villarreal DO : 1970 BED: DIS: 11/15/2021 SPEC #: [id number] RECD: 11/16/21 13:05 STATUS: VERITO RELisandra #: [id number] SUE: 11/15/21 12:[address]: Jeremi Villarreal DEPT: IMMUNOHISTOCHEMISTRY RECD BY: Paty Pennington ENTERED: 11/16/21 13:05 SP TYPE: IMMUNO OTHR DR: Dr. Shai Zhou MD Tissues: B - Stomach, NOS Procedures: H Pylori (initial) PHYSICIAN & INSTITUTION [facility] [id number] SPECIMEN INFORMATION: Tissue Source: B ? Gastric body biopsy Clinical Info: Chronic diarrhea, RUQ abdominal pain, RLQ abdominal tenderness, NAFLD Specimen Number: [id number] CPT code: 58113 METHODOLOGY: Deparaffinized sections of prefer/formalin-fixed tissue or PAP/DQ stained slides are incubated with monoclonal/polyclonal antibodies/oligonucleotide probes. Localization is made via biotin free immunoperoxidase method. Appropriate controls are performed and reacted as expected. Results on target cell population are indicated in the following table: RESULTS: ANTIBODY / CLONE RESULT Block B H Pylori (polyclonal) negative These tests were developed and their performance characteristics determined by [facility]. They may not have been cleared or approved by the U.S. Food and Drug Administration. The FDA has determined that such clearance or approval is not necessary. The above immunohistochemical/dualISH markers are ordered and reviewed by the Pathologist. INTERPRETATION: B. Gastric body, biopsy: Negative for Helicobacter pylori organisms. AM:edelmira 11/18/2021
--- NOTE | 2021-11-15 12:57 | HP.PCM_ITS ---
History and Physical Date of Admission: 11/15/21 TEO VILLAFANA, is a 51 F who presents to the office today for 6 wk f/u chronic diarrhea and abdominal pain She is worried since 3 grandparents had colon cancer and one had stomach cancer Recent increase in RUQ pain 07/2021 Workup revealed hgb a1c 6.0, unremarkable CBC, unremarkable CMP, normal TSH, normal immunoglobulins, normal SPEP, negative JAYCEE comprehensive, negative celiac, negative hepatitis, neg stool calpro, neg fecal elastase, neg stool tests for infection, neg inflammatory markers NAFLD -- 09/23/21 hepatomegaly 18.9 cm, fatty liver, elastography 8.4 kPa, F2-F3. gallstones already worked up with nl hida scan 07/2021 before we saw her. EPI -- takes Creon before eating (not effective if she takes it at same time as food, needs to take it 5 min before), some improvement of diarrhea. 06/16/2021 her fecal elastase was 65 which indicates severe pancreatic insufficiency.? She established with our GI practice on 08/10/21 for diarrhea, abd pain. Years ago she recalls some difficulty with constipation, at which time she would have lower abdominal pain followed by passage of small hard stools.? At one point she was told she was stressed out, and an imaging study showed she was full of stool.? But since at least 2014 she has had issues with chronic diarrhea.? At that time she tried to increase her intake of salads and vegetables, she noted she would have diarrhea after eating salads at restaurants.? She could also have diarrhea after eating frozen processed meals. Stools are watery or very loose.? It is not common that she will have solid formed stool.? She does have diarrhea after meals.? But she also has nocturnal diarrhea, she can be up and down all night with diarrhea, she can have fecal incontinence due to urgency.? Her BMs are often urgent.? Her diarrhea worsened after a trip to [place] in May 2021, she had significant diarrhea for 2 weeks after that trip.? She was treated with medication for possible parasite.? The diarrhea which had been worse reverted back to baseline.? In May 2021 O&P was negative, C. difficile was negative.?She was started on Creon which she takes with meals and snacks, she thinks it helps somewhat with the diarrhea but not completely.? At that time she also quit drinking any alcohol to see if that might help.? After the diagnosis of pancreatic insufficiency she had an MRCP which was unremarkable other than cholelithiasis.? She then had a HIDA scan which showed a normal gallbladder ejection fraction of 50%, patent cystic and common bile ducts, hepatomegaly.? CT in 2020 prior to the current abdominal pain was unremarkable other than diverticulosis. She also complains of right lower quadrant pain, she initially thought this was pelvic/ovarian however her racking machine operator did an ultrasound, no PACKAGE HANDLER cause found, that physician told the patient that there was excess stool and decreased movement in the bowels in the right lower quadrant.? She has the right lower quadrant pain several times a week, it is not necessarily related to bowel movements.? She also has some intermittent right upper quadrant discomfort, this can be after eating a bigger meal.? Not necessarily improved with Creon.? She sometimes gets nausea after meals, no particular foods because of this.? No vomiting. Heartburn recently after [place] food last week. Took TUMS but doesn't usually treat herself with meds for anything. Appetite ok. Sometimes feels full quickly, but not routinely.? No melena or hematochezia. 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 HIDA 07/18/21 IMPRESSION: 1.? Hepatomegaly. 2.? Patent cystic and common bile ducts. 3.? Normal gallbladder ejection fraction 50% 04/2020 CT abd pel w/ oral and IV for abd pain: diverticulosis 09/23/21 US/Abdomen Limited IMPRESSION: Hepatomegaly.? Fatty infiltration of the liver. Gallstones. Liver measures 18.9 cm 09/23/21 US/Elastography Parenchyma/Organ IMPRESSION: Liver stiffness measures 8.4 kPa compatible with F2-F3 (Mild to moderate liver fibrosis) Metavir score. ROS Const Constitutional: Positive for weight change; No fatigue ENT ENT: No difficulty swallowing Gastro GI: Positive for abdominal pain, bloating, change in bowel habits, diarrhea, excessive flatus and nausea/dyspepsia; No belching, change in stool character, coffee ground emesis, constipation, cramping, heartburn, difficulty swallowing, feeling full early, incontinent of stools, Vomiting blood/hematemesis, Blood in stool, loose stools, Black,tarry stools, pain with swallowing, vomiting or other Musc Musculoskeletal: No joint pain Skin Skin: No yellowing of the eye or itchy eyes Psych Psychiatric: No anxiety and No depression Endo Endocrine: Positive for weight change; No fatigue Aller/Imm Allergy/Immunologic: No itchy eyes Ayaan/Lymp Hematologic/Lymphatic: Positive for easy bruising; No easy bleeding Exam Const General: cooperative and comfortable Nutritional Appearance: obese Orientation: alert, awake and oriented x3 HENMT Head: normal to inspection Eyes General: appearance normal, both eyes and all related structures Resp Effort & Inspection: normal respiratory effort GI Palpation: soft, no masses and tender in the epigastrum, in the RLQ and in the RUQ Quality Reporting Tobacco Screening ([facility] 138) Smoking Status: Never smoker Assessment and Plan Assessment and Plan (1) Chronic diarrhea: ?Status:?Chronic ?Plan: 51 yr old female with chronic diarrhea, EPI (takes Creon), RUQ pain, cholelithiasis but normal HIDA, RLQ pain, NAFLD. Etiology of diarrhea and abd pains unknown, testing neg for i nfection/inflammation Check gastrin level because of diarrhea and RUQ pain/epigastric tenderness Update CT abd pel w/ oral and IV for ruq/epigastric pain/tenderness, RLQ pain/tenderness, chronic diarrhea She has upcoming egd and colonoscopy, w/ office f/u 2 wks later (2) RUQ abdominal pain: ?Status:?Acute ?Plan: I'll consult with Gen Surg--should I refer pt for eval re cholelithiasis even with normal HIDA? (3) RLQ abdominal tenderness: ?Status:?Acute ?Plan: as above (4) NAFLD (nonalcoholic fatty liver disease): ?Status:?Acute ?Plan: Discussed results of US and liver elastography. Treat with vitamin E 400 IU bid and ursodiol 300 mg BID, repeat elastography in 6 mos. Also needs control of blood sugars and cholesterol. ? ? ? Orders: Orders Gastrin, Serum Today K52.9 - Noninfective gastroenteritis and colitis, unspecified, R10.11 - Right upper quadrant pain ? Abdomen/Pelvis WITH Contrast Today K52.9 - Noninfective gastroenteritis and colitis, unspecified, R10.11 - Right upper quadrant pain, R10.813 - Right lower quadrant abdominal tenderness ? Medications: New vitamin E (dl, acetate) 180 mg? PO BID 180 caps 1RF ? ? ursodiol 300 mg? PO BID 180 caps 1RF ? ? I have re-examined the patient. There are no clinical changes since date of exam.
[2021-11-15 14:00] VITALS: BP 118/72; BP 155/93; PULSE 68; RESP 18; TEMP 36.9; O2SAT 95
--- NOTE | 2021-11-15 14:02 | OP.CCLET_ITS ---
11/15/2021 Shai Zhou [address] [place] [address] Re : Upper GI endoscopy procedure for Sheridan Pitts Dear Dr. Zhou This procedure was performed on Monday, November 15, 2021. My impressions and recommendations are as follows: Impressions : - Z-line irregular, 38 cm from the incisors. Biopsied. - Medium-sized hiatal hernia. - Erythematous mucosa in the gastric body. Biopsied. - Non-bleeding duodenal diverticulum. - Erythematous duodenopathy. Biopsied. Recommendations : - Await pathology results. - Continue present medications. My findings are described in the full procedure note, which is enclosed. If I can be of further assistance, please feel free to contact me at . Sincerely, Jeremi Villarreal, 11/15/2021 2:01:51 PM This report has been signed electronically.
--- NOTE | 2021-11-15 14:02 | OP.EGD_ITS ---
Patient Name: Sheridan Pitts Procedure Date: 11/15/2021 12:59 PM Date of : 1970 Age: 51 Procedure: Upper GI endoscopy Indications: Functional Dyspepsia, Failure to respond to medical treatment Providers: Jeremi Villarreal DO Medicines: Monitored Anesthesia Care Patient Profile: This is a 51 year old female. Refer to note in patient chart for documentation of history and physical. Patient has symptoms of chronic abdominal cramping, chronic global abdominal pain and chronic dyspepsia. Complications: No immediate complications. Procedure: Pre-Anesthesia Assessment: - Prior to the procedure, a History and Physical was performed, and patient medications and allergies were reviewed. The risks and benefits of the procedure and the sedation options and risks were discussed with the patient. All questions were answered and informed consent was obtained. Patient identification and proposed procedure were verified by the physician in the pre-procedure area. Mental Status Examination: alert and oriented. Airway Examination: normal oropharyngeal airway and neck mobility. Respiratory Examination: clear to auscultation. CV Examination: normal. Prophylactic Antibiotics: The patient does not require prophylactic antibiotics. Prior Anticoagulants: The patient has taken no previous anticoagulant or antiplatelet agents. After reviewing the risks and benefits, the patient was deemed in satisfactory condition to undergo the procedure. The anesthesia plan was to use monitored anesthesia care (MAC). Immediately prior to administration of medications, the patient was re-assessed for adequacy to receive sedatives. The heart rate, respiratory rate, oxygen saturations, blood pressure, adequacy of pulmonary ventilation, and response to care were monitored throughout the procedure. The physical status of the patient was re-assessed after the procedure. After obtaining informed consent, the endoscope was passed under direct vision. Throughout the procedure, the patient's blood pressure, pulse, and oxygen saturations were monitored continuously. The pediatric colonoscope was introduced through the mouth, and advanced to the second part of duodenum. The upper GI endoscopy was accomplished without difficulty. The patient tolerated the procedure well. Scope In: 1:11:14 PM Scope Out: 1:22:00 PM Total Procedure Duration Time 0 hours 10 minutes 46 seconds Findings: The Z-line was irregular and was found 38 cm from the incisors. Biopsies were taken with a cold forceps for histology. Verification of patient identification for the specimen was done. Estimated blood loss was minimal. A medium-sized hiatal hernia was present. Mildly erythematous mucosa without bleeding was found in the gastric body. Biopsies were taken with a cold forceps for histology. Verification of patient identification for the specimen was done. Estimated blood loss was minimal. A 5 mm non-bleeding diverticulum was found in the second portion of the duodenum. Patchy mildly erythematous mucosa without active bleeding and with no stigmata of bleeding was found in the first portion of the duodenum. Biopsies were taken with a cold forceps for histology. Verification of patient identification for the specimen was done. Impression: - Z-line irregular, 38 cm from the incisors. Biopsied. - Medium-sized hiatal hernia. - Erythematous mucosa in the gastric body. Biopsied. - Non-bleeding duodenal diverticulum. - Erythematous duodenopathy. Biopsied. Recommendation: - Await pathology results. - Continue present medications. Procedure Code(s): --- Professional --- 69887, Esophagogastroduodenoscopy, flexible, transoral; with biopsy, single or multiple CPT copyright 2017 [employer]. All rights reserved. The codes documented in this report are preliminary and upon inside plant supervisor review may be revised to meet current compliance requirements. Jeremi Villarreal DO 11/15/2021 2:01:51 PM This report has been signed electronically. Number of Addenda: 0 Note Initiated On: 11/15/2021 12:59 PM
[2021-11-15 14:05] VITALS: BP 125/80; BP 155/93; PULSE 71; RESP 16; O2SAT 99
--- NOTE | 2021-11-15 14:07 | OP.COLON_ITS ---
Patient Name: Sheridan Pitts Procedure Date: 11/15/2021 1:22 PM Date of : 1970 Age: 51 Procedure: Colonoscopy Indications: Clinically significant diarrhea of unexplained origin Providers: Jeremi Villarreal DO Medicines: Monitored Anesthesia Care Patient Profile: This is a 51 year old female. Refer to note in patient chart for documentation of history and physical. Patient has symptoms of chronic abdominal cramping, chronic global abdominal pain and chronic dyspepsia. Refer to note in patient chart for documentation of history and physical. This is a 51 year old female. Last Colonoscopy: several years ago. Complications: No immediate complications. Procedure: Pre-Anesthesia Assessment: - Prior to the procedure, a History and Physical was performed, and patient medications and allergies were reviewed. The risks and benefits of the procedure and the sedation options and risks were discussed with the patient. All questions were answered and informed consent was obtained. Patient identification and proposed procedure were verified by the physician in the pre-procedure area. Mental Status Examination: alert and oriented. Airway Examination: normal oropharyngeal airway and neck mobility. Respiratory Examination: clear to auscultation. CV Examination: normal. Prophylactic Antibiotics: The patient does not require prophylactic antibiotics. Prior Anticoagulants: The patient has taken no previous anticoagulant or antiplatelet agents. After reviewing the risks and benefits, the patient was deemed in satisfactory condition to undergo the procedure. The anesthesia plan was to use monitored anesthesia care (MAC). Immediately prior to administration of medications, the patient was re-assessed for adequacy to receive sedatives. The heart rate, respiratory rate, oxygen saturations, blood pressure, adequacy of pulmonary ventilation, and response to care were monitored throughout the procedure. The physical status of the patient was re-assessed after the procedure. After I obtained informed consent, the scope was passed under direct vision. Throughout the procedure, the patient's blood pressure, pulse, and oxygen saturations were monitored continuously. The Colonoscope was introduced through the anus and advanced to the terminal ileum. The colonoscopy was performed without difficulty. The patient tolerated the procedure well. The quality of the bowel preparation was good. Scope In: 1:25:56 PM Scope Out: 1:53:28 PM Total Procedure Duration Time 0 hours 27 minutes 32 seconds Findings: The perianal and digital rectal examinations were normal. A 4 mm polyp was found in the cecum. The polyp was sessile. The polyp was removed with a cold snare. Resection and retrieval were complete. Verification of patient identification for the specimen was done. Estimated blood loss was minimal. Multiple small and large-mouthed diverticula were found in the recto-sigmoid colon, sigmoid colon, descending colon, splenic flexure, transverse colon and hepatic flexure. An area of mildly congested mucosa was found in the recto-sigmoid colon, in the sigmoid colon and in the descending colon. Biopsies were taken with a cold forceps for histology. Verification of patient identification for the specimen was done. Estimated blood loss was minimal. The terminal ileum appeared normal. Biopsies were taken with a cold forceps for histology. Verification of patient identification for the specimen was done. Estimated blood loss was minimal. Impression: - One 4 mm polyp in the cecum, removed with a cold snare. Resected and retrieved. - Diverticulosis in the recto-sigmoid colon, in the sigmoid colon, in the descending colon, at the splenic flexure, in the transverse colon and at the hepatic flexure. - Congested mucosa in the recto-sigmoid colon, in the sigmoid colon and in the descending colon. Biopsied. - The examined portion of the ileum was normal. Biopsied. Recommendation: - Discharge patient to home. - Resume previous diet. - Continue present medications. - Await pathology results. - Repeat colonoscopy in 5 years for surveillance. - Return to GI office. Procedure Code(s): --- Professional --- 53452, Colonoscopy, flexible; with removal of tumor(s), polyp(s), or other lesion(s) by snare technique 77086, 59, Colonoscopy, flexible; with biopsy, single or multiple CPT copyright 2017 [employer]. All rights reserved. The codes documented in this report are preliminary and upon gear nicker review may be revised to meet current compliance requirements. Jeremi Villarreal DO 11/15/2021 2:06:52 PM This report has been signed electronically. Number of Addenda: 0 Note Initiated On: 11/15/2021 1:22 PM
--- NOTE | 2021-11-15 14:08 | OP.CCLET_ITS ---
11/15/2021 Shai Zhou [address] [place] [address] Re : Colonoscopy procedure for Sheridan Pitts Dear Dr. Zhou This procedure was performed on Monday, November 15, 2021. My impressions and recommendations are as follows: Impressions : - One 4 mm polyp in the cecum, removed with a cold snare. Resected and retrieved. - Diverticulosis in the recto-sigmoid colon, in the sigmoid colon, in the descending colon, at the splenic flexure, in the transverse colon and at the hepatic flexure. - Congested mucosa in the recto-sigmoid colon, in the sigmoid colon and in the descending colon. Biopsied. - The examined portion of the ileum was normal. Biopsied. Recommendations : - Discharge patient to home. - Resume previous diet. - Continue present medications. - Await pathology results. - Repeat colonoscopy in 5 years for surveillance. - Return to GI office. My findings are described in the full procedure note, which is enclosed. If I can be of further assistance, please feel free to contact me at . Sincerely, Jeremi Villarreal, 11/15/2021 2:06:52 PM This report has been signed electronically.
[2021-11-15 14:10] VITALS: BP 127/78; BP 155/93; PULSE 64; RESP 16; O2SAT 100
[2021-11-15 14:19] VITALS: BP 129/75; BP 155/93; PULSE 53; RESP 16; TEMP 36.6; O2SAT 100
[2021-11-15 14:47] VITALS: BP 155/93
--- NOTE | 2021-11-16 | GASB_PTH ---
PATIENT: TEO VILLAFANA LOC: [facility] U#:[id number] AGE/SX: 51/F ROOM: RE11/15/[address]: Dr. Jeremi Villarreal DO : 1970 BED: DIS: 11/15/2021 SPEC #: [id number] RECD: 11/16/21 13:24 STATUS: VERITO ZAN #: [id number] SUE: 11/16/21 00:[address]: Jeremi Villarreal DEPT: SURGICAL PATHOLOGY RECD BY: Miah Saxena ENTERED: 11/16/21 13:24 SP TYPE: Gastric Bx OTHR DR: Dr. Shai Zhou MD Tissues: A - Duodenum, NOS B - Gastric mucous membrane C - Esophageal mucous membrane D - Cecum, NOS E - Ileum, NOS F - COLON BIOPSY Procedures: Special Stain Group II Surgery Specimen Level IV Alcian Blue/PAS (control) HEADER OPERATION: Colonoscopy, EGD ([facility] [place]), biopsy PRE-OP DIAGNOSIS: Chronic diarrhea, RUQ abdominal pain, RLQ abdominal tenderness, NAFLD TISSUE SUBMITTED: A ? Duodenum biopsy, B ? Gastric body biopsy, C ? Distal esophagus biopsy, D ? Cecum polyp biopsy, E ? Terminal ileum biopsy, F ? Random colonic biopsy MICROSCOPIC DIAGNOSIS A. Duodenum, biopsy: Focal gastric metaplasia. B. Gastric body, biopsy: Chronic gastritis. See comment. C. Distal esophagus, biopsy: Gastroesophageal junctional mucosa with chronic inflammation. Focal changes of reflux. No evidence of goblet cell metaplasia. See comment. D. Cecal polyp, biopsy: Tubular adenoma. E. Terminal ileum, biopsy: No pathologic change. F. Colon, random biopsy: Melanosis coli. AM:[email or web address] 11/17/2021 COMMENT B. The results of immunohistochemistry for Helicobacter pylori will be reported separately ([id number]). C. Alcian blue/PAS stain with matched control supports the above diagnosis. MICROSCOPIC DESCRIPTION Slides are reviewed. GROSS DESCRIPTION A - Received in fixative is one container labeled with the patient's name and designated duodenum biopsy. The specimen consists of multiple irregular fragments of light kenny soft tissue that in aggregate measure 1.4 x 0.3 x 0.1 cm. The specimen is totally submitted in one cassette. B - Received in fixative is one container labeled with the patient's name and designated gastric body biopsy. The specimen consists of multiple irregular fragments of light kenny soft tissue that in aggregate measure 0.6 x 0.6 x 0.1 cm. The specimen is totally submitted in one cassette. C - Received in fixative is one container labeled with the patient's name and designated distal esophagus biopsy. The specimen consists of multiple irregular fragments of light kenny soft tissue that in aggregate measure 1 x 0.4 x 0.1 cm. The specimen is totally submitted in one cassette. D - Received in fixative is one container labeled with the patient's name and designated cecum polyp biopsy. The specimen consists of one irregular fragment of light kenny soft tissue that measures 0.3 x 0.3 x 0.1 cm. The specimen is totally submitted in one cassette. E - Received in fixative is one container labeled with the patient's name and designated terminal ileum biopsy. The specimen consists of multiple irregular fragments of light kenny soft tissue that in aggregate measure 1.5 x 0.3 x 0.1 cm. The specimen is totally submitted in one cassette. F - Received in fixative is one container labeled with the patient's name and designated random colonic biopsy. The specimen consists of multiple irregular fragments of light kenny soft tissue that in aggregate measure 1.5 x 0.5 x 0.1 cm. The specimen is totally submitted in one cassette. / SJ:rg 11/16/2021 TC:3 CPT: 64583 x6, 04447
== END 2021-11-15 14:57 | disposition home or self-care (01) ==
LOC: EN 11:34 → AC 11:36
PROVIDERS: PCP Family Medicine; Referring Provider Family Medicine; Visit Provider Internal Medicine Gastroenterology
PROC: 0DJD8ZZ Inspection of Lower Intestinal Tract, Via Natural or Artificial Opening Endoscopic (ICD-10-PCS; CPT 45378; principal; 2021-11-15 12:25)
DX: K52.9 Noninfective gastroenteritis and colitis, unspecified (principal); K63.5 Polyp of colon; R10.11 Right upper quadrant pain; R10.816 Epigastric abdominal tenderness; K30 Functional dyspepsia; K44.9 Diaphragmatic hernia without obstruction or gangrene; K57.50 Diverticulosis of both small and large intestine without perforation or abscess without bleeding; Z80.0 Family history of malignant neoplasm of digestive organs
CPT/HCPCS: 45380; 45385; 43239; 87493; 87506; 88305; 88313; 88342; J7120; J2405

== ENCOUNTER 2022-12-06 08:00 | Day surgery (SDC) | payer OTHER, SELFPAY ==
[2022-12-06 08:24] VITALS: BP 104/71; PULSE 64; RESP 16; TEMP 36.2; O2SAT 100; BMI 25.1
[2022-12-06] MEDS: Lactated Ringers 1,000 ML 15 ML IV (08:33)
--- NOTE | 2022-12-06 09:00 | IMM_PTH ---
PATIENT: TEO VILLAFANA LOC: EN U#:[id number] AGE/SX: 52/F ROOM: RE12/06/[address]: Dr. Jeremi Villarreal DO : 1970 BED: DIS: 12/06/2022 SPEC #: [id number] RECD: 12/07/22 14:12 STATUS: VERITO REQ #: [id number] SUE: 12/06/22 09:[address]: Jeremi Villarreal DEPT: IMMUNOHISTOCHEMISTRY RECD BY: Paty Pennington ENTERED: 12/07/22 14:12 SP TYPE: IMMUNO OTHR DR: Dr. Shai Zhou MD Tissues: B - Stomach, NOS C - Esophagus, NOS Procedures: H Pylori (initial) P53 (initial) KI-67 (add) MOC-31 (add) PHYSICIAN & INSTITUTION [place] [address] SPECIMEN INFORMATION: Tissue Source: B - Gastric body, C - Distal esophagus Clinical Info: NAFLD, mucosal abnormality of duodenum, diarrhea Specimen Number: [id number] B & C CPT code: 27708 x2, 48270 x2 METHODOLOGY: Deparaffinized sections of prefer/formalin-fixed tissue or PAP/DQ stained slides are incubated with monoclonal/polyclonal antibodies/oligonucleotide probes. Localization is made via biotin free immunoperoxidase method. Appropriate controls are performed and reacted as expected. Results on target cell population are indicated in the following table: RESULTS: ANTIBODY / CLONE RESULT Block B H Pylori (polyclonal) negative Block C P53 (DO-7) negative (Null pattern) Ki-67 (30-9) positive, very low MOC-31 (4561) positive, weak These tests were developed and their performance characteristics determined by [facility]. They may not have been cleared or approved by the U.S. Food and Drug Administration. The FDA has determined that such clearance or approval is not necessary. The above immunohistochemical/dualISH markers are ordered and reviewed by the Pathologist. INTERPRETATION: B. Gastric body, biopsy: Negative for Helicobacter pylori organisms. C. Distal esophagus, biopsy: Negative for dysplasia SJ:robinson 12/11/2022
--- NOTE | 2022-12-06 09:00 | EGD_PTH ---
PATIENT: TEO VILLAFANA LOC: EN U#:[id number] AGE/SX: 52/F ROOM: RE12/06/[address]: Dr. Jeremi Villarreal DO : 1970 BED: DIS: 12/06/2022 SPEC #: [id number] RECD: 12/06/22 14:03 STATUS: VERITO ZAN #: [id number] SUE: 12/06/22 09:[address]: Jeremi Villarreal DEPT: SURGICAL PATHOLOGY RECD BY: Shanthi Brantley ENTERED: 12/07/22 09:07 SP TYPE: EGD BIOPSY CAROLA DR: Dr. Shai Zhou MD Tissues: A - Duodenum, NOS B - Gastric mucous membrane C - Esophagus, NOS Procedures: Surgery Specimen Level IV HEADER OPERATION: EGD with biopsy PRE-OP DIAGNOSIS: NAFLD, mucosal abnormality of duodenum, diarrhea TISSUE SUBMITTED: A - Duodenum, B - Gastric body, C - Distal esophagus MICROSCOPIC DIAGNOSIS A. Duodenum, biopsy: Mild nonspecific chronic inflammation. B. Gastric body, biopsy: Chronic gastritis. See comment. C. Distal esophagus, biopsy: Gastroesophageal junctional mucosa with chronic inflammation. Focal changes of reflux. No evidence of dysplasia. See comment. AM:edelmira 12/08/2022 COMMENT B. The results of immunohistochemistry for Helicobacter pylori will be reported separately ([id number]). C. Focal goblet cell metaplasia consistent noted only in the alcian blue/PAS stained slides only, matched control is appropriate. Immunohistochemistry ([id number]) for P53 and Ki-67 will be performed and results will be reported separately. Case has been reviewed in consultation with Dr. Jensen who concurs with the above diagnosis. IDC:SJ MICROSCOPIC DESCRIPTION Slides are reviewed. The specimen shows fragments of gastric mucosa with chronic inflammatory cell infiltrates in the lamina propria consisting of lymphocytes and plasma cells, consistent with mild chronic gastritis. GROSS DESCRIPTION A - Received in fixative is one container labeled with the patient's name and designated duodenum. The specimen consists of multiple irregular fragments of light kenny soft tissue that in aggregate measure 1.0 x 0.5 x 0.1 cm. The specimen is totally submitted in one cassette. B - Received in fixative is one container labeled with the patient's name and designated gastric body. The specimen consists of multiple irregular fragments of light kenny soft tissue that in aggregate measure 2.0 x 0.5 x 0.1 cm. The specimen is totally submitted in one cassette. C - Received in fixative is one container labeled with the patient's name and designated distal esophagus. The specimen consists of one irregular fragment of light kenny soft tissue that measures 0.3 x 0.3 x 0.1 cm. The specimen is totally submitted in one cassette. / SJ:rg 12/07/2022 TC:3 CPT: 90845 x3, 25558
--- NOTE | 2022-12-06 09:15 | PCM.HP.BLA ---
History and Physical Date of Admission: 12/06/22 52 F who presents to the office today for Prior workup ? Stool O/P, C.difficile WNL ? Elastase L65 ? Creon started, helpful *BGI established 7.07.27 with history of constipation of hard small stools; 2014 BM pattern changed to chronic urgent loose/watery stools. ? Biochemical CBC, ESR, CMP, LFT, TSH, coag, GAME, JAYCEE comp, ANCA, CHUN, celiac, AMA, hepatitis without pertinent abnormality ? A1c H6 ? Stool calprotectin, lactoferrin, EP WNL ? US and elastography 09.23.21 hepatic measurement 18.9cm with fatty infiltration, stiffness 8.4kPa; multiple gallstones. ? CT abd/pel 09.30.21 normal liver; colonic diverticulosis ? EGD and colonoscopy 11.15.21 EGD irregular Zline 38cm without metaplasia; medium hiatal hernia; duodenal diverticulum; gastritis; duodenitis with metaplasia ? Colonoscopy 4mm TA polyp; congested mucosa; melanosis coli ? Stool 11.15.21 c.difficile, EP WNL OV 11.29.21 start sucralfate, PPI. Start FODMAP diet. Continue vit E and ursodiol. OV 02.28.22 loose stools are under control. Following carnivore diet with intentional weightloss. Has stopped PPI, vit E, ursodiol and creon. OV 10.02. feels she is doing very well overall. Had one episode of loose stools lately which she feels was food triggered. She continues to be without medications from this clinic. ROS Const Constitutional: No fatigue ENT ENT: No difficulty swallowing Gastro GI: Positive for change in bowel habits; No abdominal pain, belching, bloating, change in stool character, coffee ground emesis, constipation, cramping, diarrhea, heartburn, difficulty swallowing, feeling full early, excessive flatus, incontinent of stools, Vomiting blood/hematemesis, Blood in stool, loose stools, Black,tarry stools, nausea/dyspepsia, pain with swallowing, vomiting or other Musc Musculoskeletal: Positive for muscle cramps and leg pain at night; No joint pain Skin Skin: No yellowing of the eye or itchy eyes Psych Psychiatric: No anxiety and No depression Endo Endocrine: No fatigue Aller/Imm Allergy/Immunologic: No itchy eyes Ayaan/Lymp Hematologic/Lymphatic: No easy bleeding or easy bruising Exam Const General: cooperative, healthy appearing and comfortable Orientation: alert, awake and oriented x3 Quality Reporting Tobacco Screening ([facility] 138) Smoking Status: Former smoker Assessment and Plan Assessment and Plan (1) NAFLD (nonalcoholic fatty liver disease): Status: Chronic Plan: see above (2) Mucosal abnormality of duodenum: Status: Chronic Comment: Duodenal metaplasia (3) Diarrhea: Status: Chronic Plan: 51-year-old female whose diarrhea is currently under good control. She is feeling very well currently. Following a carnivore diet for the time being, has good energy, losing weight intentionally. She has stopped all the medications that we had prescribed including PPI, vitamin E and ursodiol for NAFLD, and Creon. She will plan on following up in 6 months for reevaluation, we can discuss rechecking labs at that time, and considering repeat elastography and EGD. (4) Exocrine pancreatic insufficiency: Status: Acute Plan: see above I have examined the patient and the H&P has been reviewed. There are no clinical changes since date of exam.
[2022-12-06 09:39] VITALS: BP 104/71; BP 94/58; PULSE 66; RESP 18; TEMP 36.4; O2SAT 97
[2022-12-06 09:40] VITALS: BP 104/71; BP 96/59; PULSE 74; RESP 18; O2SAT 99
--- NOTE | 2022-12-06 09:41 | OP.CCLET_ITS ---
12/06/2022 Shai Zhou [address] [place] [address] Re : Upper GI endoscopy procedure for Sheridan Pitts Dear Dr. Zhou This procedure was performed on Tuesday, December 06, 2022. My impressions and recommendations are as follows: Impressions : - Z-line irregular, 38 cm from the incisors. Biopsied. - Multiple gastric polyps. - Erythematous mucosa in the gastric body. Biopsied. - Duodenitis. Biopsied. Recommendations : - Discharge patient to home. - Resume previous diet. - Restart pantoprazole 20 mg p.o. twice daily - Continue present medications. My findings are described in the full procedure note, which is enclosed. If I can be of further assistance, please feel free to contact me at . Sincerely, Jeremi Villarreal, 12/06/2022 9:41:26 AM This report has been signed electronically.
--- NOTE | 2022-12-06 09:41 | OP.EGD_ITS ---
Patient Name: Sheridan Pitts Procedure Date: 12/06/2022 9:14 AM Date of : 1970 Age: 52 Procedure: Upper GI endoscopy Indications: Functional Dyspepsia Providers: Jeremi Villarreal DO Medicines: Monitored Anesthesia Care Patient Profile: This is a 52 year old female. Refer to note in patient chart for documentation of history and physical. Patient has symptoms of chronic dyspepsia. Complications: No immediate complications. Procedure: Pre-Anesthesia Assessment: - Prior to the procedure, a History and Physical was performed, and patient medications and allergies were reviewed. The patient is competent. The risks and benefits of the procedure and the sedation options and risks were discussed with the patient. All questions were answered and informed consent was obtained. Patient identification and proposed procedure were verified. Mental Status Examination: alert and oriented. Airway Examination: normal oropharyngeal airway and neck mobility. Respiratory Examination: clear to auscultation. CV Examination: normal. Prophylactic Antibiotics: The patient does not require prophylactic antibiotics. Prior Anticoagulants: The patient has taken no anticoagulant or antiplatelet agents. ASA Grade Assessment: II - A patient with mild systemic disease. After reviewing the risks and benefits, the patient was deemed in satisfactory condition to undergo the procedure. The anesthesia plan was to use monitored anesthesia care (MAC). Immediately prior to administration of medications, the patient was re-assessed for adequacy to receive sedatives. The heart rate, respiratory rate, oxygen saturations, blood pressure, adequacy of pulmonary ventilation, and response to care were monitored throughout the procedure. The physical status of the patient was re-assessed after the procedure. After obtaining informed consent, the endoscope was passed under direct vision. Throughout the procedure, the patient's blood pressure, pulse, and oxygen saturations were monitored continuously. The gastroscope was introduced through the mouth, and advanced to the second part of duodenum. The upper GI endoscopy was accomplished without difficulty. The patient tolerated the procedure well. Scope In: 9:24:21 AM Scope Out: 9:31:06 AM Total Procedure Duration Time 0 hours 6 minutes 45 seconds Findings: The Z-line was irregular and was found 38 cm from the incisors. Biopsies were taken with a cold forceps for histology. Verification of patient identification for the specimen was done. Estimated blood loss was minimal. LA grade a esophagitis. Multiple 4 mm sessile polyps with no stigmata of recent bleeding were found in the gastric fundus and in the gastric body. Patchy moderately erythematous mucosa without bleeding was found in the gastric body. Biopsies were taken with a cold forceps for histology. Verification of patient identification for the specimen was done. Estimated blood loss was minimal. Biopsies were taken with a cold forceps for Helicobacter pylori testing. Verification of patient identification for the specimen was done. Estimated blood loss was minimal. Patchy moderate inflammation characterized by congestion (edema), erosions and erythema was found in the duodenal bulb, in the first portion of the duodenum and in the second portion of the duodenum. Biopsies were taken with a cold forceps for histology. Verification of patient identification for the specimen was done. Estimated blood loss was minimal. Impression: - Z-line irregular, 38 cm from the incisors. Biopsied. - Multiple gastric polyps. - Erythematous mucosa in the gastric body. Biopsied. - Duodenitis. Biopsied. Recommendation: - Discharge patient to home. - Resume previous diet. - Restart pantoprazole 20 mg p.o. twice daily - Continue present medications. Procedure Code(s): --- Professional --- 73277, Esophagogastroduodenoscopy, flexible, transoral; with biopsy, single or multiple CPT copyright 2021 [employer]. All rights reserved. The codes documented in this report are preliminary and upon internal medicine specialist review may be revised to meet current compliance requirements. Jeremi Villarreal DO 12/06/2022 9:41:26 AM This report has been signed electronically. Number of Addenda: 0 Note Initiated On: 12/06/2022 9:14 AM
[2022-12-06 09:45] VITALS: BP 103/68; BP 104/71; PULSE 62; RESP 18; O2SAT 100
[2022-12-06 09:49] VITALS: BP 104/71; BP 109/74; PULSE 61; RESP 18; TEMP 36.3; O2SAT 100
[2022-12-06 10:04] VITALS: BP 104/71
== END 2022-12-06 10:21 | disposition home or self-care (01) ==
LOC: EN 08:00 → AC 08:03
PROVIDERS: PCP Family Medicine; Referring Provider Family Medicine; Visit Provider Internal Medicine Gastroenterology
PROC: 0DJ08ZZ Inspection of Upper Intestinal Tract, Via Natural or Artificial Opening Endoscopic (ICD-10-PCS; CPT 43235; principal; 2022-12-06 08:55)
DX: K76.0 Fatty (change of) liver, not elsewhere classified (principal); K29.80 Duodenitis without bleeding; Z87.891 Personal history of nicotine dependence; K31.7 Polyp of stomach and duodenum; K31.89 Other diseases of stomach and duodenum; R19.7 Diarrhea, unspecified; K86.81 Exocrine pancreatic insufficiency; K28.9 Gastrojejunal ulcer, unspecified as acute or chronic, without hemorrhage or perforation
CPT/HCPCS: 43239; 81002; 88305; 88341; 88342; J7120

== ENCOUNTER → 2023-10-09 | Outpatient (CLI) | payer OTHER, SELFPAY ==
--- NOTE | 2023-10-09 11:21 | RAD_ITS ---
STUDY: X-RAY - LEFT CLAVICLE REASON FOR EXAM: Female, 53 years old. swelling medial side of collar bone TECHNIQUE: 2 view(s) of the clavicle. COMPARISON: None. FINDINGS: Normal clavicle. Normal acromioclavicular articulation. Normal visualized sternoclavicular articulation. Normal visualized pulmonary apex. RAD/Clavicle IMPRESSION: Normal x-ray examination of the clavicle. Electronically Signed: Dillon Blanco MD at 8:29 EDT ,
[2023-10-09 12:23] LABS: Absolute Lymphocyte Count 2.14 X10^3/uL (0.83-4.51); Absolute Neutrophil Count 2.2 X10^3/uL (2.0-7.7); Basophil# 0.06 X10^3/uL; Basophil% 1.2 % (0-1); Eosinophil# 0.11 X10^3/uL; Eosinophils% 2.3 % (0-5); Hematocrit 41.1 % (37-47); Hemoglobin 13.1 g/dL (12.0-15.0); Lymphocyte # 2.14 X10^3/ul (0.83-4.51); Lymphocyte % 44.3 % (19-41); Mean Corp Hgb Conc 31.9 g/dL (32-36); Mean Corpuscular Hgb 28.1 pg (27.0-32.0); Mean Platelet Vol. 9.2 fl (6.2-12.0); Monocyte# 0.29 X10^3/uL; NRBC Flagged by Analyzer 0 % (0-5); Neutrophil # 2.22 X10^3/uL (2.7-7.7); Platelet Count 251 K/mm3 (150-450); RBC Distribution Width CV 13.8 % (11.6-14.6); RBC Distribution Width SD 44.9 fl (35.1-43.9); Red Blood Count 4.67 M/mm3 (4.2-5.4); White Blood Count 4.8 K/mm3 (4.4-11.0)
[2023-10-09 13:16] LABS: AST(SGOT) 16 U/L (15-37); Alanine Aminotransfer ALT/SGPT 20 U/L (13-56); Albumin, Serum 3.6 g/dL (3.2-5.0); Alkaline Phosphatase 56 U/L (45-117); Anion Gap 8 (5-15); BUN 23 mg/dL (7-18); BUN/Creat Ratio 30.4 RATIO (10-20); Calcium,Total 9.1 mg/dL (8.5-10.1); Chloride 108 mmol/L (98-107); Cholesterol 249 mg/dL (200); Creatinine, Serum 0.76 mg/dL (0.55-1.02); EST Glomerular Filtration Rate 84 mL/min (>60); Est Glom Filt Rate - Afr Amer 102 mL/min (>60); Globulin 3.6 g/dL (2.2-4.2); Glucose 103 mg/dL (74-106); High Density Lipoprotein 68 mg/dL; Potassium 4.1 mmol/L (3.5-5.1); Protein, Total 7.2 g/dL (6.4-8.2); Sodium Level 138 mmol/L (136-145); Triglycerides 147 mg/dL; Very Low Density Lipoprotein 29 mg/dL (5-40)
[2023-10-09 13:25] LABS: Hemoglobin A1c 5.6 % (3.8-5.6)
== END | disposition home or self-care (01) ==
PROVIDERS: PCP Family Medicine; Referring Provider Family Medicine; Visit Provider Family Medicine
DX: Z00.00 Encounter for general adult medical examination without abnormal findings (principal); M89.319 Hypertrophy of bone, unspecified shoulder; K76.0 Fatty (change of) liver, not elsewhere classified
CPT/HCPCS: 36415; 73000; 80053; 80061; 83036; 84443; 85025

== ENCOUNTER → 2023-10-23 | Outpatient (CLI) | payer OTHER, SELFPAY ==
--- NOTE | 2023-10-23 08:56 | BI_ITS ---
MAMMOGRAPHY - BILATERAL SCREENING REASON FOR EXAM: Female, 53 years old. Routine annual screening examination. PERTINENT HISTORY: Grandmother with breast cancer. TECHNIQUE: Digital bilateral breast bonifacio (3D mammographic acquisition) in the CC and MLO projections. 2-D mediolateral oblique (MLO) and craniocaudad (CC) views of both breasts were obtained. CAD: Full Field Digital Mammography with Computer Added Detection was performed. COMPARISON: Comparison is made with prior study April 05, 2021 October 20, 2016. FINDINGS: Breast Composition: The breasts are heterogeneously dense, which may obscure small masses. There are no dominant masses or suspicious calcifications. No other significant abnormalities are identified. There has been no significant change since the prior study. BI/SCRN MAMM (CAD)W/BONIFACIO BILAT IMPRESSION: Stable bilateral screening mammogram. Yearly follow-up mammogram recommended. (A) ASSESSMENT CATEGORY: BIRADS Category 1: Negative. A letter regarding these results will be sent to the patient by the facility within 30 days. Approximately 10% of breast cancers are not detected by mammography. A normal mammogram should not delay biopsy of a clinically suspicious abnormality. [id number] Electronically Signed: Prabhu Kern MD at 9:46 EDT ,
== END | disposition home or self-care (01) ==
LOC: OPBI 08:43
PROVIDERS: PCP Family Medicine; Referring Provider Family Medicine; Visit Provider Family Medicine
DX: Z12.31 Encounter for screening mammogram for malignant neoplasm of breast (principal); Z80.3 Family history of malignant neoplasm of breast
CPT/HCPCS: 77063; 77067

== ENCOUNTER → 2023-11-01 | Outpatient (CLI) | payer OTHER, SELFPAY ==
--- NOTE | 2023-11-01 08:54 | US_ITS ---
STUDY: ABDOMINAL ULTRASOUND - RIGHT UPPER QUADRANT; ELASTOGRAPHY REASON FOR VISIT: Female, 53 years old. NAFLD TECHNIQUE: Ultrasound evaluation of the right upper quadrant was performed with real-time and static kimball-scale imaging. Point quantification shear wave elastography was performed ([employer]). TECHNICAL QUALITY: Adequate. COMPARISON: Comparison is made with prior study September 23, 2021. FINDINGS: Liver: The liver measures 16.7 cm. There is normal echogenicity of the liver. The bile ducts are within normal limits. There is hepatic color flow. The direction of portal flow is hepatopetal. There is no demonstrated mass lesion. Median liver stiffness measured 3.6 kPa. Gallbladder: Normal distended gallbladder. The gallbladder wall measures 2 mm. There is a negative sonographic Darden''s sign. There is no pericholecystic fluid. There are multiple echogenic structures within the gallbladder, consistent with multiple gallstones. Common Bile Duct (C.B.D.): The common bile duct measures 5 mm. Pancreas: There is normal echogenicity of the visualized pancreas. There is no demonstrated pancreatic mass or cyst. Right Kidney: Normal size of the right kidney. The right kidney measures 11.5 cm x 5.4 cm x 5.3 cm. Normal renal cortex. The right cortex measures 1.7 cm. There is no demonstrated renal mass or cyst. There is no right hydronephrosis. US/ABD Limited w/ Elastography IMPRESSION: 1. Liver stiffness measures 3.6 kPa compatible with FO (Normal) Metavir score. 2. Multiple gallstones. Electronically Signed: Prabhu Kern MD at 7:44 EDT ,
== END | disposition home or self-care (01) ==
LOC: US 08:52
PROVIDERS: PCP Family Medicine; Referring Provider Internal Medicine Gastroenterology; Visit Provider Internal Medicine Gastroenterology
DX: K76.0 Fatty (change of) liver, not elsewhere classified (principal); K86.81 Exocrine pancreatic insufficiency; R10.11 Right upper quadrant pain
CPT/HCPCS: 76705; 76981

== ENCOUNTER 2024-12-09 14:20 | Day surgery (SDC) | payer OTHER, SELFPAY ==
[2024-12-09] VITALS (8 sets, daily range): BP systolic 116–157; BP diastolic 54–84; PULSE 59–69; RESP 14–20; TEMP 36.6–36.8; O2SAT 99–100; BMI 34.8
[2024-12-09] MEDS: Lactated Ringers 1,000 ML 15 ML IV (14:51)
--- NOTE | 2024-12-09 15:30 | EGD_PTH ---
PATIENT: TEO VILLAFANA LOC: EN U#:[id number] AGE/SX: 54/F ROOM: RE12/09/[address]: Dr. Jeremi Villarreal DO : 1970 BED: DIS: 12/09/2024 SPEC #: [id number] RECD: 12/10/24 07:11 STATUS: VERITO RELisandra #: [id number] SUE: 12/09/24 15:[address]: Jeremi Villarreal DEPT: SURGICAL PATHOLOGY RECD BY: Jeremy Boone ENTERED: 12/10/24 11:04 SP TYPE: EGD BIOPSY BERNABE DR: Dr. Shai Zhou MD Tissues: A - Esophagus, NOS Procedures: Surgery Specimen Level IV HEADER OPERATION: EGD with biopsy PRE-OP DIAGNOSIS: Powell's esophagus TISSUE SUBMITTED: A- Distal esophagus biopsy MICROSCOPIC DIAGNOSIS A. Distal esophagus, biopsy: - Squamous mucosa with reactive changes. - Columnar mucosa negative for goblet cell metaplasia, negative for dysplasia. MICROSCOPIC DESCRIPTION Slides are reviewed. GROSS DESCRIPTION A. Received in fixative is one container labeled with the patient's name and designated Distal esophagus biopsy. The specimen consists of multiple irregular fragments of kenny tissue that in aggregate measure 1 x 0.6 x 0.2 cm. The specimen is totally submitted in one cassette. RI 12/10/2024 CPT:02836
--- NOTE | 2024-12-09 15:55 | PCM.PRE.AN2 ---
ASA Classification* ASA Classification ASA Classification: 2 Assessment & Plan Anesthesia* Anesthesia Assessment Anesthesia Assessment: Discussed sedation and/or anesthesia options, risks, benefits, and alternatives with patient/parents/legal guardian/POA. Questions invited. The patient/parents/legal guardian/POA seems to understand and agrees to proceed with anesthesia plan. Reviewed the physical assessment, medical history, allergy history and patient home medications list prior to surgery/procedure/anesthetic and documented any changes. Performed airway and anesthesia risk assessments. Anesthesia Type Anesthesia Type: MAC History Source History Obtained from:: Patient and Chart Anesthesia Focused Assessment* Temperature: 98.2 F Pulse Rate: 59 Blood Pressure: 157/84 Respiratory Rate: 16 Pulse Ox: 100 Oxygen Delivery Method: Room Air Airway Assessment Mouth opens: >3 cm Mallampati Score: III Teeth Condition: Caps/Crowns (Patient has several crowns. They are tight.) and Missing (Patient has couple missing molars. Rest are tight.) Neck Range of motion (ROM): Full ROM Labs Anesthesia Preop lab: CBC WBC, (4.4-11.0) 4.8 K/mm3 10/09/23, 11:00 RBC, (4.2-5.4) 4.67 M/mm3 10/09/23, 11:00 Hgb, (12.0-15.0) 13.1 g/dL 10/09/23, 11:00 Hct, (37-47) 41.1 % 10/09/23, 11:00 Plt Count, (150-450) 251 K/mm3 10/09/23, 11:00 CHEMISTRY Potassium, (3.5-5.1) 4.1 mmol/L 10/09/23, 11:00 Sodium, (136-145) 138 mmol/L 10/09/23, 11:00 BUN, (7-18) 23 mg/dL H 10/09/23, 11:00 Creatinine, (0.55-1.02) 0.76 mg/dL 10/09/23, 11:00 Glucose, (74-106) 103 mg/dL 10/09/23, 11:00 TSH, (0.358-3.740) 1.170 uIU/mL 10/09/23, 11:00 COAG PT, (11.7-14.9) 12.6 SECONDS 08/10/21, 09:20 Pre-Assessment Diagnosis/Proposed Procedure Planned Operative Procedure(s): EGD Anesthesia History 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 When Was Last Pacemaker Check QUESTION #4 FULL TEXT: You/Your Family Experience fever (hyperthermia) with Anesthesia Last Oral Intake Last Oral intake: Last Oral Intake NPO since 23:00 12/09/24 14:47 Meds taken in AM with sips of No 12/09/24 14:47 water? 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 Female Yes 12/04/24 12:08 HX of Motion Sickness No 12/04/24 12:08 HX of N/V After Surgery No 12/04/24 12:08 Non-Smoker Yes 12/04/24 12:08 Duration of Surgery greater No 12/04/24 12:08 than 60 minutes Number of Risk Factors 2 12/04/24 12:08 PONV Score Moderate Risk 12/04/24 12:08 Height & Weight Height & Weight: Anesthesia: Height & Weight Height 5 ft 8 in 12/09/24 14:47 Weight: 104 kg 12/09/24 14:47 Body Mass Index (BMI) 34.8 12/09/24 14:47 Respiratory Assessment Respiratory Assessment - strip mill operator: Respiratory Tract Infection Hx - strip mill operator Hx Respiratory Tract Infection No 12/04/24 12:08 STOP Sleep Apnea STOP Sleep Apnea - strip mill operator: STOP Sleep Apnea - strip mill operator Hx Hypertension No 12/04/24 12:08 Hx Sleep Apnea No 12/04/24 12:08 CPAP BIPAP Do you snore loudly (louder No 12/04/24 12:08 than talking or can be heard Do you often feel tired/ No 12/04/24 12:08 fatigued/ sleepy during daytime? Has anyone observed you stop No 12/04/24 12:08 breathing during sleep? STOP Results Negative 12/04/24 12:08 QUESTION #5 FULL TEXT : Do you snore loudly (louder than talking or can be heard through closed doors)? 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 Specify any problems Hx of Preganancy in last 3 No 12/04/24 12:08 Months Nurse Filling Out Transfusion VCHRISTIN 12/04/24 12:08 & Questions: Date: 12/04/24 12/04/24 12:08 Time: 12:09 12/04/24 12:08 Patient unable to answer at this time (ie. confused, unrespo /Reproduction History /Reproductive History - strip mill operator: /Reproductive Hx- strip mill operator Hx Now No 12/04/24 12:08 Gestational Age (in weeks): EDC: Hx Hx Para Hx Section SAB No 12/04/24 12:08 Active Medications Active Medications: Current Medications Generic Name Dose Route Start Last Admin Trade Name Freq PRN Reason Stop Dose Admin Lactated Ringer's 1,000 mls @ 15 mls/hr 12/09/24 14:30 12/09/24 14:51 IV 15 mls/hr .Q48H ZEB Administration PFSH Medical History Post-menopausal Migraine headache Heartburn History of diverticulitis History of stress test Former smoker Leg cramps Pyloric stenosis Diarrhea Pancreatic insufficiency Home Medications ?Medication ?Instructions ?Recorded ?Last Taken ?Type Iodine 10 drp PO DAILY 11/18/24 12/08/24 History Vitamin E 1 ml PO DAILY 11/18/24 12/08/24 History vitamin D2 20 mcg-vitamin K1 120 2 drp PO DAILY 12/04/24 12/08/24 History mcg/4 drops oral Allergy/AdvReac Type Severity Reaction Status Date / Time latex Allergy Unknown Verified 12/04/24 12:03 Family History Grandmother Breast cancer Grandfather Colon cancer Cancer Stomach Grandfather Colon cancer Cancer Stomach Mother Hypertension Hyperlipidemia Aunt Hypertension Hyperlipidemia Breast cancer Surgical History History of esophagogastroduodenoscopy (EGD) History of colonoscopy History of repair of pyloric stenosis Social History Smoking Status: Former smoker Tobacco: How many years used: 20 Electronic Cigarette Use: not used second hand exposure: No alcohol intake: never substance use type: other details: edible Review of Systems (Anesthesia) ROS Narrative System reviewed and no additional complaints, except as documented.
--- NOTE | 2024-12-09 16:19 | PCM.HP.STD ---
HPI - General General Date of Admission: 12/09/24 Date of Service: 12/09/24 Chief Complaint: Powell's esophagus HPI Narrative TEO VILLAFANA, is a 54 F who presents [TEO VILLAFANA, is a 54 F who presents to the office today for follow up. Prior workup ? Stool O/P, C.difficile WNL ? Elastase L65 ? Creon started, helpful *BGI established 7 with history of constipation of hard small stools; 2014 BM pattern changed to chronic urgent loose/watery stools. ? Biochemical CBC, ESR, CMP, LFT, TSH, coag, GAME, JAYCEE comp, ANCA, CHUN, celiac, AMA, hepatitis without pertinent abnormality ? A1c H6 ? Stool calprotectin, lactoferrin, EP WNL ? US and elastography 09.23.21 hepatic measurement 18.9cm with fatty infiltration, stiffness 8.4kPa; multiple gallstones. ? CT abd/pel 09.30.21 normal liver; colonic diverticulosis ? EGD and colonoscopy 11.15.21 EGD irregular Zline 38cm without metaplasia; medium hiatal hernia; duodenal diverticulum; gastritis; duodenitis with metaplasia. ? Colonoscopy 4mm TA polyp; congested mucosa; melanosis coli ? Stool 11.15.21 c.difficile, EP WNL OV 11.29.21 start sucralfate, PPI. Start FODMAP diet. Continue vit E and ursodiol. OV 02.28.22 loose stools are under control. Following carnivore diet with intentional weight loss. Has stopped PPI, vit E, ursodiol and creon. OV 10.02. feels she is doing very well overall. Had one episode of loose stools lately which she feels was food triggered. She continues to be without medications from this clinic. ? EGD 12.06.22 irregular Zline, Am40-G55+; multiple gastric polyp; gastritis; duodenitis. Contact, 12.20.22 with results. OV 8. pt reports that she has had an increase in stress the past few months with her job and kind of strayed from her dietary plan, but has since started eating on plan again and is feeling better. Noted diarrhea and abd pain while off plan. US and elastography 11.01.23 hepatic measurement 16.7cm with fatty infiltration, stiffness measures 3.6kPa compatible with F0 Metavir score. OV 4.8.25 pt reports that she is feeling well overall and denies GI symptoms of concern at this time. Pt reports she has recently put on some weight, but is trying to get back on the wagon. OV 10.25 pt reports that she is feeling well overall and denies GI symptoms of concern at this time. [facility] Medical History Post-menopausal Migraine headache Heartburn History of diverticulitis History of stress test Former smoker Leg cramps Pyloric stenosis Diarrhea Pancreatic insufficiency Home Medications ?Medication ?Instructions ?Recorded ?Last Taken ?Type Iodine 10 drp PO DAILY 11/18/24 12/08/24 History Vitamin E 1 ml PO DAILY 11/18/24 12/08/24 History vitamin D2 20 mcg-vitamin K1 120 2 drp PO DAILY 12/04/24 12/08/24 History mcg/4 drops oral Allergy/AdvReac Type Severity Reaction Status Date / Time latex Allergy Unknown Verified 12/04/24 12:03 Family History Grandmother Breast cancer Grandfather Colon cancer Cancer Stomach Grandfather Colon cancer Cancer Stomach Mother Hypertension Hyperlipidemia Aunt Hypertension Hyperlipidemia Breast cancer Surgical History History of esophagogastroduodenoscopy (EGD) History of colonoscopy History of repair of pyloric stenosis Social History Smoking Status: Former smoker Tobacco: How many years used: 20 Electronic Cigarette Use: not used second hand exposure: No alcohol intake: never substance use type: other details: edible ROS Constitutional Constitutional: Denies fatigue, fever(s), poor appetite, weight gain or weight loss Gastrointestinal Gastrointestinal: Denies belching, bloating, change in bowel habits, change in stool character, chewing difficulty, coffee ground emesis, constipation, cramping, diarrhea, dyspepsia, dysphagia, early satiety, excessive flatus, fecal incontinence, heartburn, hematemesis, hematochezia, hemorrhoids, loose stools, melena, nausea, odynophagia, rectal bleeding, tenesmus, vomiting or weight changes Vital Signs Vital Signs Vital Signs: 12/09/24 14:47 12/09/24 14:47 12/09/24 16:00 Temperature 98.2 F 98.2 F Temperature Source Temporal Pulse Rate 59 L 59 L Respiratory Rate 16 16 Respiratory Pattern Normal Blood Pressure 157/84 H 157/84 H Blood Pressure Mean 108 Blood Pressure Source Monitor Blood Pressure Position Semi-Fowlers Blood Pressure Location Right Arm Pulse Ox 100 100 Oxygen Delivery Method Room Air Room Air Weight Weight: 229 lb 4.492 oz Body Mass Index (BMI) 34.8 Physical Exam Const alert, oriented x3, no apparent distress and healthy appearing General Appearance: cooperative GI normal to inspection, nondistended, normoactive bowel sounds, soft to palpation, non-tender and non-distended Percussion: normal to percussion Rectal Exam: deferred Assessment & Plan Assessment/Plan (1) Barretts esophagus: PLAN: g Assessment and Plan Assessment and Plan (1) NAFLD (nonalcoholic fatty liver disease): Status: Chronic Plan: Her last elastography was back in late 2021. At that time she had an F2-F3 score yielding 8.4 kPa and went down to 3.6kPa. Her liver size at that time was 17 cm and wernt down to 15cm. She has lost a considerable amount of weight. But currently she is back up to 215lbs. Her goal is 165lbs. we talked about intermittent fasting in order to decrease her caloric intake. She actually has done a 72-hour fast in the past which has helped her reset. I recommended a 24-hour fast on the basis (2) Mucosal abnormality of duodenum: Status: Chronic Comment: Duodenal metaplasia (3) Diarrhea: Status: Chronic Plan: 51-year-old female whose diarrhea is currently under good control. She is feeling very well currently. Following a carnivore diet for the time being, has good energy, losing weight intentionally. She has stopped all the medications that we had prescribed including PPI, vitamin E and ursodiol for NAFLD, and Creon. We will repeat elastography. (4) Exocrine pancreatic insufficiency: Status: Chronic Plan: She has been doing very good and regarding diet for her exocrine pancreatic insufficiency. We will have to repeat her pancreatic elastase levels along with stool calprotectin and fecal fat to make sure that she is not losing any fat-soluble vitamins. (5) Barretts esophagus: Status: Acute Plan: On her last endoscopy she was discovered to have short segment Powell's esophagus. We would do surveillance of her Powell's esophagus because she is not on PPI therapy at this time. ]
[2024-12-09] MEDS: Lactated Ringers 1,000 ML 1000 ML IV (16:31)
--- NOTE | 2024-12-09 16:53 | POSTOP.ANE_ITS ---
Anesthesia: Postop Eval I
--- NOTE | 2024-12-09 16:53 | PCM.POST.ANE ---
Anesthesia: Postop Eval I Current Vital Signs Temperature: 98.0 F Pulse Rate: 69 Blood Pressure: 126/73 Respiratory Rate: 20 Pulse Ox: 99 Oxygen Delivery Method: Room Air Assessment Airway patent: Yes Spontaneous unlabored respirations: Yes Mental status: Awake and Calm nausea: No Vomiting: No Anesthesia Complication: No Fluid Hydration Crystalloid volume administer (ml): 700 Total IV fluid infused: 700 Progress Note Anesthesia document: Postop Eval 1 completed: Yes
--- NOTE | 2024-12-09 17:01 | OP.EGD_ITS ---
Patient Name: Sheridan Pitts
--- NOTE | 2024-12-09 17:25 | POSTOPAN2_ITS ---
Anesthesia Postop Eval I Sum
--- NOTE | 2024-12-09 17:25 | PCM.POSTANE2 ---
Anesthesia Postop Eval I Sum Postop Eval Completion status Anesthesia document: Postop Eval 1 completed: Yes Anesthesia Postop Eval I Summary Anesthesia Postop Eval I Summary: Anesthesia Postop Eval I: Assessment Summary Airway patent Yes 12/09/24 16:54 [employer].[email or web address] Spontaneous unlabored Yes 12/09/24 16:54 [employer].[email or web address] respirations Mental status Awake,Calm 12/09/24 16:54 [employer].[email or web address] nausea No 12/09/24 16:54 [email or web address].[email or web address] Vomiting No 12/09/24 16:54 [email or web address].[email or web address] Anesthesia Postop Eval I: Fluid Summary Crystalloid volume administer 700 12/09/24 16:54 [employer].[email or web address] (ml) Colloids volume administered ( ml) Blood Product volume administered (ml) Total IV fluid infused 700 12/09/24 16:54 [email or web address] Anesthesia Postop Eval I: Summary Notes Anesthesia Complication No 12/09/24 16:54 [email or web address].[email or web address] Anesthesia Complication Comment: Post-operative progress note Anesthesia: Postop Eval II Evaluation Mental status: Awake and Calm Pain Level: 0 nausea: No Vomiting: No Complications Anesthesia Complication: No
== END 2024-12-09 17:33 | disposition home or self-care (01) ==
LOC: EN 14:21 → AC 14:22
PROVIDERS: PCP Family Medicine; Referring Provider Family Medicine; Visit Provider Internal Medicine Gastroenterology
PROC: 0DJ08ZZ Inspection of Upper Intestinal Tract, Via Natural or Artificial Opening Endoscopic (ICD-10-PCS; CPT 43235; principal; 2024-12-09 15:25)
DX: K22.70 Barrett's esophagus without dysplasia (principal); Z87.891 Personal history of nicotine dependence; K76.0 Fatty (change of) liver, not elsewhere classified; K31.7 Polyp of stomach and duodenum; K86.81 Exocrine pancreatic insufficiency
CPT/HCPCS: 43239; 88305